=== PATIENT | male | born 1965 | race African-American/Black ===

== ENCOUNTER 2016-08-20 13:18 | Inpatient (IN) | payer OTHER ==
[2016-08-20 13:47] VITALS: BMI 27.3
--- NOTE | 2016-08-20 16:08 | HP ---
COWS - Scale Resting Pulse: 0= [place] 80 or Below Sweatin=Flushed/Facial Moisture Restless Observation: 3= Extraneous Movement Pupil Size: 2= Moderately Dilated Bone or Joint Aches: 2= Severe Diffuse Aches Runny Nose/ Eye Tearin= Runny Nose/Eyes GI Upset > 30mins: 3= Vomiting/Diarrhea Tremor Observation: 2= Slight Tremor Visible Yawning Observation: 2= >3x During Session Anxiety or Irritability: 2=Irritable/Anxious Goose Flesh Skin: 0=Smooth Skin COWS Score: 20 CIWA Score - CIWA Score Nausea/Vomitin Muscle Tremors: 3 Anxiety: 3 Agitation: 3 Paroxysmal Sweats: 2 Orientation: 0-Oriented Tacttile Disturbances: 2-Mild Itch/Numbness/Burn Auditory Disturbances: 2-Mild Harshness/Frighten Visual Disturbances: 2-Mild Sensitivity Headache: 2-Mild CIWA-Ar Total Score: 22 Admission ROS BHS - HPI Chief Complaint: i need help to stop using heroin,xanax and alcohol Allergies/Adverse Reactions: Allergies Allergy/AdvReac Type Severity Reaction Status Date / Time No Known Allergies Allergy Verified 08/20/16 15:32 History of Present Illness: this 51 years old male with heroin,xanax and alcohol dependence,withdrawal symptom,last detox 06/06 [facility] h[facility] nicotine dependence longest period of sobriety 5 years Exam Limitations: No Limitations - Ebola screening Have you traveled outside of the country in the last 21 days: No Have you had contact with anyone from an Ebola affected area: No Have you been sick,other than usual withdrawal symptoms: No Do you have a fever: No - Review of Systems Constitutional: Chills, Diaphoresis, Loss of Appetite, Malaise, Night Sweats, Changes in sleep, Weakness, Unintentional Wgt. Loss EENT: reports: Tearing, Nose Congestion Respiratory: reports: No Symptoms reported Cardiac: reports: Palpitations GI: reports: Diarrhea, Nausea, Vomiting, Abdominal cramping : reports: No Symptoms Reported Musculoskeletal: reports: Back Pain, Joint Pain, Muscle Pain, Joint Stiffness Integumentary: reports: Dryness Endocrine: reports: No Symptoms Reported Hematology: reports: No Symptoms Reported Psychiatric: reports: No Sypmtoms Reported, Judgement Intact, Mood/Affect Appropiate, Orientated x3 Patient History - Patient Medical History Hx Anemia: No (non compliance) Hx Asthma: No Hx Chronic Obstructive Pulmonary Disease (COPD): No Hx Cardiac Disorders: No Hx Hypertension: Yes Hx Seizures: No Hx Diabetes: No Hx Gastrointestinal Disorders: No Hx Liver Disease: No Hx Genitourinary Disorders: No Hx Sexually Transmitted Disorders: No Hx Renal Disease (ESRD): No Hx Thyroid Disease: No Hx Human Immunodeficiency Virus (HIV): No (last 08/19/16 negative) Hx Hepatitis C: No Hx Depression: No Hx Suicide Attempt: Yes (overdose) Hx Schizophrenia: No Other Medical History: no suicidal,no homicidal - Patient Surgical History Past Surgical History: Yes Hx Orthopedic Surgery: Yes (lt clavicle lipoma 2000) - PPD History Previous Implant?: Yes Documented Results: Positive w/o proof Implanted On Prior [facility] Admission?: No PPD to be Administered?: No - Smoking Cessation Smoking history: Current every day smoker Have you smoked in the past 12 months: Yes Aproximately how many cigarettes per day: 20 Hx Chewing Tobacco Use: No Initiated information on smoking cessation: Yes 'Breaking Loose' booklet given: 08/20/16 - Substance & Tx. History Hx Alcohol Use: Yes Hx Substance Use: Yes Substance Use Type: Alcohol, Heroin, Tranquilizers Hx Substance Use Treatment: Yes ([facility] 06/06) - Substances Abused Heroin Route: Inhalation Frequency: Daily Amount used: 10 bags Age of first use: 29 Date of Last Use: 08/18/16 Alcohol Route: Oral Frequency: Daily Amount used: jean pierre(2 pints) Age of first use: 13 Date of Last Use: 08/18/16 Alprazolam (Xanax) Frequency: 3-6 times per week Amount used: 1 stik Age of first use: 41 Date of Last Use: 08/19/16 Family Disease History - Family Disease History Family Disease History: Other: Brother (dsa) Admission Physical Exam BHS - Vital Signs Vital Signs: Vital Signs - 24 hr 08/20/16 13:45 Temperature 98.7 F Pulse Rate 67 Respiratory 20 Rate Blood Pressure 162/114 - Physical General Appearance: Yes: Moderate Distress, Tremorous, Irritable, Sweating, Anxious HEENTM: Yes: Normal ENT Inspection, LEILA, Pharynx Normal, Nasal Congestion, Rhinorrhea Respiratory: Yes: Lungs Clear, Normal Breath Sounds, No Respiratory Distress Neck: Yes: Within Normal Limits, Supple, Trachea in good position Breast: Yes: Within Normal Limits Cardiology: Yes: Regular Rhythm, Regular Rate, S1, S2, Edema Abdominal: Yes: Within Normal Limits, Normal Bowel Sounds, Non Tender, Flat, Soft Genitourinary: Yes: Within Normal Limits Back: Yes: Normal Inspection, Muscle Spasm Musculoskeletal: Yes: Within Normal Limits, Back pain, Muscle Pain Extremities: Yes: Tremors Neurological: Yes: Within Normal Limits, orthodontist assistant II-XII NML intact, Fully Oriented, Alert, Motor Strength 5/5 Integumentary: Yes: Dry Lymphatic: Yes: Within Normal Limits - Diagnostic (1) Opioid dependence with withdrawal Current Visit: Yes Status: Acute (2) Alcohol dependence with uncomplicated withdrawal Current Visit: Yes Status: Acute (3) Uncomplicated sedative, hypnotic or anxiolytic withdrawal Current Visit: Yes Status: Acute (4) Hypertension Current Visit: Yes Status: Acute (5) Weight loss Current Visit: Yes Status: Acute (6) Positive PPD, treated Current Visit: Yes Status: Acute (7) Depression Current Visit: Yes Status: Acute Cleared for Admission [facility] - Detox or Rehab [facility] Level of Care: Medically Managed Detox Regimen/Protocol: Methadone/Librium [facility] Breath Alcohol Content Breath Alcohol Content: 0 Urine Drug Screen - Results Drug Screen Negative: No Urine Drug Screen Results: LUIS-Cocaine, OPI-Opiates, BZO-Benzodiazepines
[2016-08-20] MEDS ORDERED: chlordiazePOXIDE HCL 25 MG CAPSULE PO ONE (16:18)
[2016-08-20] MEDS ORDERED: METHADONE HCL 10 MG TABLET (FOR DETOX USE ONLY) PO ONE ×2 (16:18→23:00)
[2016-08-20] MEDS ORDERED: guaiFENesin/D-METHORPHAN HB 10 ML UNIT-DOSE CUPS PO PRN (16:19)
[2016-08-20] MEDS ORDERED: LOPERAMIDE HCL 2 MG CAPSULE PO PRN (16:19)
[2016-08-20] MEDS ORDERED: MAGNESIUM CITRATE 300 ML BOTTLE PO PRN (16:19)
[2016-08-20] MEDS ORDERED: MAGNESIUM HYDROX 2400MG/30ML ORAL SUSPENSION 30 ML CUP PO PRN (16:19)
[2016-08-20] MEDS ORDERED: MENTHOL/PHENOL 1 EACH UD MM PRN (16:19)
[2016-08-20] MEDS ORDERED: diphenhydrAMINE HCL 50 MG CAPSULE PO PRN (16:19)
[2016-08-20] MEDS ORDERED: IBUPROFEN 400 MG TABLET (FP) PO PRN (16:19)
[2016-08-20] MEDS ORDERED: hydrOXYzine PAMOATE 50 MG CAPSULE (FP) PO PRN (16:19)
[2016-08-20] MEDS ORDERED: P-EPHED 60MG/TRIPROLIDI 2.5MG TABLET PO PRN (16:19)
[2016-08-20] MEDS ORDERED: NICOTINE POLACRILEX 2 MG GUM BC PRN (16:19)
[2016-08-20] MEDS: chlordiazePOXIDE HCL 25 MG CAPSULE PO SCH ×2 (17:07→23:03)
[2016-08-20] MEDS ORDERED: TRIMETHOBENZAMIDE HCL 200MG/2ML INJ IM ONE (19:47)
--- NOTE | 2016-08-20 20:10 | PN ---
S Progress Note Note: PATIENT FEEL DIZZY IN FRONT OF NURSING STATION,SLIDE DOWN TO THE FLOOR,NO HEAD INJURY,NO COMPLAINT, ALERT,ORIENTED X 3, NO HEAD INJURY NO COMPLAINT BP 167/110,P62,R20,T98.2 LUNG CLAR NO NECK PAIN, PUPIL EQUAL AND REACT TO LIGHT IMPREESION INITIATE FALL PROTOCOL 2 FALL PRECAUTION TIGAN 200 MGS IM Q 8 HRS CLOSE MONITOIRING BGM 108
[2016-08-20] MEDS ORDERED: TRIMETHOBENZAMIDE HCL 200MG/2ML INJ IM PRN (21:48)
[2016-08-20] MEDS ORDERED: METHADONE HCL 10 MG TABLET (FOR DETOX USE ONLY) ONE (21:51)
[2016-08-20] MEDS: THIAMINE HCL 100 MG TABLET (FP) PO SCH (23:01)
[2016-08-21] MEDS: ACETAMINOPHEN 325 MG TABLET (FP) PO PRN ×2 (00:20→06:05)
[2016-08-21] MEDS: chlordiazePOXIDE HCL 25 MG CAPSULE PO SCH ×5 (05:20→22:27)
[2016-08-21] MEDS ORDERED: cloNIDine HCL 0.1 MG TABLET PO ONE (05:28)
[2016-08-21 09:39] LABS: MCH 27.1 pg (25.7-33.7); MCHC 33.5 g/dl (32.0-35.9); MEAN CELL VOLUME 80.9 fl (80-96); MEAN PLT VOLUME 7.9 fl (7.5-11.1); PLATELET COUNT 358 K/MM3 (134-434); RDW 15.7 % (11.9-15.9); WHITE BLOOD COUNT 9.2 K/mm3 (4.0-10.0)
[2016-08-21 09:41] LABS: URINE APPEARANCE CLEAR; URINE BILIRUBIN NEGATIVE (NEGATIVE); URINE BLOOD NEGATIVE (NEGATIVE); URINE COLOR YELLOW; URINE GLUCOSE (UA) NEGATIVE (NEGATIVE); URINE KETONE 2+ (NEGATIVE); URINE LEUK ESTERASE NEGATIVE (NEGATIVE); URINE NITRITE NEGATIVE (NEGATIVE); URINE UROBILINOGEN NEGATIVE E.U./dl (0.2-1.0)
[2016-08-21 09:53] LABS: URINE PROTEIN 1+ (NEGATIVE)
[2016-08-21 09:59] LABS: ALBUMIN 4.1 g/dl (3.4-5.0); ALK PHOS 67 U/L (45-117); ANION GAP 9 (8-16); BILIRUBIN,TOTAL 0.7 mg/dL (0.2-1.0); CALCIUM 9.3 mg/dL (8.5-10.1); CO2 27 mmol/L (21-32); CREATININE 1.1 mg/dL (0.7-1.3); GLUCOSE,RANDOM 110 mg/dL (74-106); SGOT/AST 14 U/L (15-37); SGPT/ALT 22 U/L (12-78); TOT PROT 7.7 g/dl (6.4-8.2)
[2016-08-21] MEDS ORDERED: METHADONE HCL 10 MG TABLET (FOR DETOX USE ONLY) PO SCH (10:00)
[2016-08-21] MEDS ORDERED: PATIENT'S OWN MEDICATION (NON-FORMULARY) (Clonidine Hcl [Clonidine Hcl] 0.2 MG) PO SCH (10:00)
[2016-08-21 10:06] LABS: URINE MUCUS MANY; URINE RBC 35 /hpf (0-3); URINE WBC 2 /hpf (3-5)
[2016-08-21] MEDS: amLODIPine BESYLATE 10 MG TABLET (FP) PO SCH (10:21)
[2016-08-21] MEDS: cloNIDine HCL 0.1 MG TABLET PO SCH (10:21)
[2016-08-21] MEDS: PRENATAL VITAMINS W/ FOLIC ACID TABLET (FP) PO SCH (10:21)
[2016-08-21] MEDS ORDERED: LISINOPRIL 10 MG TABLET (FP) PO ONE (10:45)
--- NOTE | 2016-08-21 11:05 | PN ---
[facility] CIWA - CIWA Score Nausea/Vomitin Muscle Tremors: 2 Anxiety: 3 Agitation: 3 Paroxysmal Sweats: 3 Orientation: 0-Oriented Tacttile Disturbances: 2-Mild Itch/Numbness/Burn Auditory Disturbances: 0-None Visual Disturbances: 0-None Headache: 0-None Present CIWA-Ar Total Score: 16 [facility] COWS - Scale Resting Pulse: 1= [place] 81-100 Sweatin=Flushed/Facial Moisture Restless Observation: 1= Difficult to Sit Still Pupil Size: 1= Pupils >than Normal Bone or Joint Aches: 2= Severe Diffuse Aches Runny Nose/ Eye Tearin= Nasal Congestion GI Upset > 30mins: 1= Stomach Cramp Tremor Observation of Outstretched Hands: 1= Tremor [place], Not Seen Anxiety or Irritability: 1=Feels Anxious/Irritable Goose Flesh Skin: 0=Smooth Skin [facility] Progress Note (SOAP) Subjective: interrupted sleep, sweats, headache, muscle aches , Objective: 08/21/16 11:02 Vital Signs Temperature 98.6 F 08/21/16 10:03 Pulse Rate 84 08/21/16 10:03 Respiratory Rate 16 08/21/16 10:03 Blood Pressure 133/80 08/21/16 10:03 O2 Sat by Pulse Oximetry (%) Laboratory Tests 08/20/16 08/21/16 08/21/16 20:00 07:00 07:00 WBC 9.2 RBC 4.96 Hgb 13.5 Hct 40.2 MCV 80.9 MCHC 33.5 RDW 15.7 Plt Count 358 MPV 7.9 Sodium 142 Potassium 3.7 Chloride 106 Carbon Dioxide 27 Anion Gap 9 BUN 16 Creatinine 1.1 Creat Clearance w eGFR > 60 POC Glucometer 108 Random Glucose 110 H Calcium 9.3 Total Bilirubin 0.7 AST 14 L ALT 22 Alkaline Phosphatase 67 Total Protein 7.7 Albumin 4.1 Urine Color Urine Appearance Urine pH Ur Specific [place] Urine Protein Urine Glucose (UA) Urine Ketones Urine Blood Urine Nitrite Urine Bilirubin Urine Urobilinogen Ur Leukocyte Esterase Urine RBC Urine WBC Urine Mucus 08/21/16 07:00 WBC RBC Hgb Hct MCV MCHC RDW Plt Count MPV Sodium Potassium Chloride Carbon Dioxide Anion Gap BUN Creatinine Creat Clearance w eGFR POC Glucometer Random Glucose Calcium Total Bilirubin AST ALT Alkaline Phosphatase Total Protein Albumin Urine Color Yellow Urine Appearance Clear Urine pH 6.0 Ur Specific [place] 1.031 Urine Protein 1+ H Urine Glucose (UA) Negative Urine Ketones 2+ H Urine Blood Negative Urine Nitrite Negative Urine Bilirubin Negative Urine Urobilinogen Negative Ur Leukocyte Esterase Negative Urine RBC 35 Urine WBC 2 Urine Mucus Many pt lying in bed aox3 , irritable 08/21/16 11:05 08/21/16 11:06 Assessment: 08/21/16 11:03 withdrawal sx's 08/21/16 11:05 Plan: cont. detox increase fluidds motrin prn
[2016-08-21] MEDS: chlordiazePOXIDE HCL 25 MG CAPSULE PO PRN (13:19)
--- NOTE | 2016-08-21 16:05 | CONSULT ---
[facility] Psychiatric Consult - Data Date of interview: 08/21/16 Admission source: [facility] Identifying data: [facility] for this 51 y/o AA male seeking detox treatment for heroin,alcohol and xanax dependence.Patient is single,a father of three,homeless,unemployed and supported on Public Assistance. Substance Abuse History: - Smoking Cessation. Smoking history: Current every day smoker. Have you smoked in the past 12 months: Yes. Aproximately how many cigarettes per day: 20. Hx Chewing Tobacco Use: No. Initiated information on smoking cessation: Yes. 'Breaking Loose' booklet given: 08/20/16. - Substance & Tx. History. Hx Alcohol Use: Yes. Hx Substance Use: Yes. Substance Use Type : Alcohol, Heroin, Tranquilizers. Hx Substance Use Treatment: Yes ([facility] 06[facility] - Substances Abused. Heroin. Route: Inhalation. Frequency: Daily. Amount used: 10 bags. Age of first use: 29. Date of Last Use: 08/18/16. Alcohol. Route: Oral. Frequency: Daily. Amount used: jean pierre(2 pints). Age of first use: 13. Date of Last Use: 08/18/16. Alprazolam (Xanax). Frequency: 3-6 times per week. Amount used: 1 stik. Age of first use: 41. Date of Last Use: 08/19/16. Confirmed by patient. Medical History: Hypertension. Psychiatric History: Patient admits to a remote history of five psychiatric hospitalizations (years ago).Diagnosed with MDD and Anxiety Disorder.Prescribed seroquel 100 mg/hs + trazodone 100 mg/hs + remeron 15 mg/hs.Mr Burch states that he will abstain from taking these medications while on 6 ." I am aware of being on so many other things now;My plan is to complete detox and restart my regular medications after I get home." Patient sees a private psychiatrist at a mental health clinic in [facility] (name of site not recalled by patient).No reported history of suicide attempts. Physical/Sexual Abuse/Trauma History: Patient denies. Additional Comment: Urine Drug Screen Results: LUIS-Cocaine, OPI-Opiates, BZO- Benzodiazepines.Noted. Mental Status Exam - Mental Status Exam Alert and Oriented to: Time, Place, Person Cognitive Function: Good Patient Appearance: Well Groomed Mood: Hopeful, Euthymic Affect: Appropriate, Normal Range Patient Behavior: Fatigued, Appropriate, Cooperative Speech Pattern: Clear, Appropriate Voice Loudness: Normal Thought Process: Intact, Goal Oriented Thought Disorder: Not Present Hallucinations: Denies Suicidal Ideation: Denies Homicidal Ideation: Denies Insight/Judgement: Poor Sleep: Fair Appetite: Good Muscle strength/Tone: Normal Gait/Station: Normal Psychiatric Findings - Problem List ([place] 1, 2,3) (1) Alcohol dependence with uncomplicated withdrawal Current Visit: Yes Status: Acute (2) Opioid dependence with withdrawal Current Visit: Yes Status: Acute (3) Uncomplicated sedative, hypnotic or anxiolytic withdrawal Current Visit: Yes Status: Acute (4) Nicotine dependence Current Visit: Yes Status: Acute (5) MDD (major depressive disorder) Current Visit: Yes Status: Chronic (6) Substance induced mood disorder Current Visit: Yes Status: Acute (7) Hypertension Current Visit: Yes Status: Chronic (8) Positive PPD, treated Current Visit: Yes Status: Chronic - Initial Treatment Plan Initial Treatment Plan: Psychoeducation.Patient is advised against his decision to defer pharmacotherapy.He refuses to reconsider.Detoxification in progress.Observation.
[2016-08-21] MEDS: THIAMINE HCL 100 MG TABLET (FP) PO SCH (22:27)
[2016-08-21] MEDS: ZOLPIDEM TARTRATE 10 MG TABLET (PARK CARE ONLY) PO PRN (22:30)
[2016-08-22] MEDS: chlordiazePOXIDE HCL 25 MG CAPSULE PO SCH ×2 (05:40→10:49)
[2016-08-22] MEDS ORDERED: cloNIDine HCL 0.1 MG TABLET PO SCH (10:10)
--- NOTE | 2016-08-22 10:44 | PN ---
[facility] CIWA - CIWA Score Nausea/Vomitin-No Nausea/No Vomiting Muscle Tremors: 3 Anxiety: 3 Agitation: 3 Paroxysmal Sweats: 3 Orientation: 0-Oriented Tacttile Disturbances: 0-None Auditory Disturbances: 0-None Visual Disturbances: 0-None Headache: 0-None Present CIWA-Ar Total Score: 12 [facility] COWS - Scale Resting Pulse: 0= [place] 80 or Below Sweatin=Flushed/Facial Moisture Restless Observation: 1= Difficult to Sit Still Pupil Size: 0= Normal to Room Light Bone or Joint Aches: 2= Severe Diffuse Aches Runny Nose/ Eye Tearin= Nasal Congestion GI Upset > 30mins: 1= Stomach Cramp Tremor Observation of Outstretched Hands: 2= Slight Tremor Visible Yawning Observation: 1= 1-2x During Session Anxiety or Irritability: 1=Feels Anxious/Irritable Goose Flesh Skin: 0=Smooth Skin COWS Score: 11 S Progress Note (SOAP) Subjective: sweats mild chest pain irritable body aches nausea Objective: 08/22/16 10:44 Vital Signs Temperature 99.3 F 08/22/16 10:41 Pulse Rate 61 08/22/16 10:41 Respiratory Rate 18 08/22/16 10:41 Blood Pressure 150/102 08/22/16 10:41 O2 Sat by Pulse Oximetry (%) Laboratory Tests 08/20/16 08/21/16 08/21/16 20:00 07:00 07:00 WBC 9.2 RBC 4.96 Hgb 13.5 Hct 40.2 MCV 80.9 MCHC 33.5 RDW 15.7 Plt Count 358 MPV 7.9 Sodium 142 Potassium 3.7 Chloride 106 Carbon Dioxide 27 Anion Gap 9 BUN 16 Creatinine 1.1 Creat Clearance w eGFR > 60 POC Glucometer 108 Random Glucose 110 H Calcium 9.3 Total Bilirubin 0.7 AST 14 L ALT 22 Alkaline Phosphatase 67 Total Protein 7.7 Albumin 4.1 Urine Color Urine Appearance Urine pH Ur Specific [place] Urine Protein Urine Glucose (UA) Urine Ketones Urine Blood Urine Nitrite Urine Bilirubin Urine Urobilinogen Ur Leukocyte Esterase Urine RBC Urine WBC Urine Mucus RPR Titer 08/21/16 08/21/16 08/22/16 07:00 07:00 06:34 WBC RBC Hgb Hct MCV MCHC RDW Plt Count MPV Sodium Potassium Chloride Carbon Dioxide Anion Gap BUN Creatinine Creat Clearance w eGFR POC Glucometer 101 Random Glucose Calcium Total Bilirubin AST ALT Alkaline Phosphatase Total Protein Albumin Urine Color Yellow Urine Appearance Clear Urine pH 6.0 Ur Specific [place] 1.031 Urine Protein 1+ H Urine Glucose (UA) Negative Urine Ketones 2+ H Urine Blood Negative Urine Nitrite Negative Urine Bilirubin Negative Urine Urobilinogen Negative Ur Leukocyte Esterase Negative Urine RBC 35 Urine WBC 2 Urine Mucus Many RPR Titer Nonreactive awake/alert ambulating no acute distress ekg ordered; no difference from last ekg Assessment: 08/22/16 10:45 withdrawal sx Plan: continue detox increase fluids aspirin 81mg daily [place] prn tigan prn
[2016-08-22] MEDS: LISINOPRIL 10 MG TABLET (FP) PO SCH (10:48)
[2016-08-22] MEDS: amLODIPine BESYLATE 10 MG TABLET (FP) PO SCH (10:48)
[2016-08-22] MEDS: PRENATAL VITAMINS W/ FOLIC ACID TABLET (FP) PO SCH (10:48)
[2016-08-22] MEDS: METHADONE HCL 5 MG TABLET (FOR DETOX USE ONLY) PO SCH (10:49)
[2016-08-22] MEDS: ASPIRIN 81 MG CHEWABLE TABLETS PO SCH (10:50)
[2016-08-22] MEDS: cloNIDine HCL 0.1 MG TABLET PO SCH ×2 (10:51→10:57)
[2016-08-22] MEDS: chlordiazePOXIDE 5 MG CAPSULE PO SCH ×2 (17:36→22:35)
[2016-08-22] MEDS: MAG HYDROX/AL HYDROX/SIMETH 30 ML UNIT-DOSE CUP PO PRN (20:24)
[2016-08-22] MEDS: THIAMINE HCL 100 MG TABLET (FP) PO SCH (22:35)
[2016-08-22] MEDS: ZOLPIDEM TARTRATE 10 MG TABLET (PARK CARE ONLY) PO PRN (22:35)
--- NOTE | 2016-08-22 22:51 | EKG ---
Test Reason : Blood Pressure : / mmHG Vent. Rate : 061 BPM Atrial Rate : 061 BPM P-R Int : 166 ms QRS Dur : 084 ms QT Int : 406 ms P-R-T Axes : 081 077 073 degrees QTc Int : 408 ms NORMAL SINUS RHYTHM NONSPECIFIC T WAVE ABNORMALITY ABNORMAL ECG NO PREVIOUS ECGS AVAILABLE Confirmed by PETE PEREZ, NEEL ([id number]) on 08/22/2016 10:51:09 PM Referred By: Confirmed By:NEEL FREEMAN MD
[2016-08-23] MEDS: chlordiazePOXIDE 5 MG CAPSULE PO SCH ×2 (06:00→10:18)
--- NOTE | 2016-08-23 10:11 | EKG ---
Test Reason : Blood Pressure : / mmHG Vent. Rate : 060 BPM Atrial Rate : 060 BPM P-R Int : 162 ms QRS Dur : 082 ms QT Int : 436 ms P-R-T Axes : 067 060 060 degrees QTc Int : 436 ms NORMAL SINUS RHYTHM POSSIBLE LEFT ATRIAL ENLARGEMENT NONSPECIFIC T WAVE ABNORMALITY ABNORMAL ECG WHEN COMPARED WITH ECG OF 20-AUG-2016 16:14, NO SIGNIFICANT CHANGE WAS FOUND Confirmed by GONZALEZ PEREZ, FAN ([id number]) on 08/23/2016 10:10:34 AM Referred By: Rhett Guido Confirmed By:FAN ROTH MD
[2016-08-23] MEDS: ASPIRIN 81 MG CHEWABLE TABLETS PO SCH (10:17)
[2016-08-23] MEDS: PRENATAL VITAMINS W/ FOLIC ACID TABLET (FP) PO SCH (10:17)
[2016-08-23] MEDS: METHADONE HCL 5 MG TABLET (FOR DETOX USE ONLY) PO SCH (10:18)
[2016-08-23] MEDS: amLODIPine BESYLATE 10 MG TABLET (FP) PO SCH (10:18)
[2016-08-23] MEDS: LISINOPRIL 10 MG TABLET (FP) PO SCH (10:20)
[2016-08-23] MEDS: cloNIDine HCL 0.1 MG TABLET PO SCH (10:20)
[2016-08-23] MEDS: ACETAMINOPHEN 325 MG TABLET (FP) PO PRN (12:29)
[2016-08-23] MEDS: chlordiazePOXIDE HCL 25 MG CAPSULE PO PRN (12:31)
--- NOTE | 2016-08-23 13:37 | PN ---
[facility] Progress Note (SOAP) Subjective: interrupted sleep, sweats mild upset stomach , lipoma on rt buttock Objective: 08/23/16 13:34 Vital Signs Temperature 98.1 F 08/23/16 13:01 Pulse Rate 61 08/23/16 13:01 Respiratory Rate 18 08/23/16 13:01 Blood Pressure 98/56 08/23/16 13:01 O2 Sat by Pulse Oximetry (%) Laboratory Tests 08/20/16 08/21/16 08/21/16 20:00 07:00 07:00 WBC 9.2 RBC 4.96 Hgb 13.5 Hct 40.2 MCV 80.9 MCHC 33.5 RDW 15.7 Plt Count 358 MPV 7.9 Sodium 142 Potassium 3.7 Chloride 106 Carbon Dioxide 27 Anion Gap 9 BUN 16 Creatinine 1.1 Creat Clearance w eGFR > 60 POC Glucometer 108 Random Glucose 110 H Calcium 9.3 Total Bilirubin 0.7 AST 14 L ALT 22 Alkaline Phosphatase 67 Total Protein 7.7 Albumin 4.1 Urine Color Urine Appearance Urine pH Ur Specific [place] Urine Protein Urine Glucose (UA) Urine Ketones Urine Blood Urine Nitrite Urine Bilirubin Urine Urobilinogen Ur Leukocyte Esterase Urine RBC Urine WBC Urine Mucus RPR Titer 08/21/16 08/21/16 08/22/16 07:00 07:00 06:34 WBC RBC Hgb Hct MCV MCHC RDW Plt Count MPV Sodium Potassium Chloride Carbon Dioxide Anion Gap BUN Creatinine Creat Clearance w eGFR POC Glucometer 101 Random Glucose Calcium Total Bilirubin AST ALT Alkaline Phosphatase Total Protein Albumin Urine Color Yellow Urine Appearance Clear Urine pH 6.0 Ur Specific [place] 1.031 Urine Protein 1+ H Urine Glucose (UA) Negative Urine Ketones 2+ H Urine Blood Negative Urine Nitrite Negative Urine Bilirubin Negative Urine Urobilinogen Negative Ur Leukocyte Esterase Negative Urine RBC 35 Urine WBC 2 Urine Mucus Many RPR Titer Nonreactive pt aox3 in nad ambulating rt buttock mass pedunculated Assessment: 08/23/16 13:36 withdrawal sx;s Plan: cont. detox increase fluids surgical f/up at d/c [place] prn
[2016-08-23] MEDS: chlordiazePOXIDE HCL 10 MG CAPSULE PO SCH ×2 (17:41→22:26)
[2016-08-23] MEDS: THIAMINE HCL 100 MG TABLET (FP) PO SCH (22:26)
[2016-08-23] MEDS: ZOLPIDEM TARTRATE 10 MG TABLET (PARK CARE ONLY) PO PRN (22:27)
[2016-08-23] MEDS: METHYL SALICYLATE/MENTHOL OINT 30 GM TUBE TP SCH (22:32)
[2016-08-24] MEDS: chlordiazePOXIDE HCL 10 MG CAPSULE PO SCH ×2 (05:10→10:35)
[2016-08-24] MEDS: MAG HYDROX/AL HYDROX/SIMETH 30 ML UNIT-DOSE CUP PO PRN (09:25)
[2016-08-24] MEDS ORDERED: METHADONE HCL 10 MG TABLET (FOR DETOX USE ONLY) PO SCH (10:00)
--- NOTE | 2016-08-24 10:10 | PN ---
S Progress Note (SOAP) Subjective: ALERT,IRRITABLE,ANXIOUS,INTERRUPTED SLEEP Objective: 08/24/16 10:09 Vital Signs Temperature 97.7 F 08/24/16 06:16 Pulse Rate 55 L 08/24/16 06:16 Respiratory Rate 18 08/24/16 06:16 Blood Pressure 122/79 08/24/16 06:16 O2 Sat by Pulse Oximetry (%) Assessment: 08/24/16 10:09 WITHDRAWAL SYMPTOM Plan: CONTINUE DETOX,DISCHARGE IN AM
[2016-08-24] MEDS: PRENATAL VITAMINS W/ FOLIC ACID TABLET (FP) PO SCH (10:35)
[2016-08-24] MEDS: amLODIPine BESYLATE 10 MG TABLET (FP) PO SCH (10:35)
[2016-08-24] MEDS: cloNIDine HCL 0.1 MG TABLET PO SCH (10:35)
[2016-08-24] MEDS: METHYL SALICYLATE/MENTHOL OINT 30 GM TUBE TP SCH ×2 (10:35→22:26)
[2016-08-24] MEDS: LISINOPRIL 10 MG TABLET (FP) PO SCH (10:35)
[2016-08-24] MEDS: ASPIRIN 81 MG CHEWABLE TABLETS PO SCH (10:35)
[2016-08-24] MEDS: THIAMINE HCL 100 MG TABLET (FP) PO SCH (22:25)
[2016-08-25] MEDS ORDERED: METHADONE HCL 5 MG TABLET (FOR DETOX USE ONLY) PO SCH (06:00)
--- NOTE | 2016-08-25 08:11 | PN ---
S Progress Note (SOAP) Subjective: ALERT,NO COMPLAINT Objective: 08/25/16 08:10 Vital Signs Temperature 97.7 F 08/25/16 06:32 Pulse Rate 50 L 08/25/16 06:32 Respiratory Rate 18 08/25/16 06:32 Blood Pressure 122/74 08/25/16 06:32 O2 Sat by Pulse Oximetry (%) 08/25/16 08:10 Assessment: 08/25/16 08:10 DETOX COMPLETED,NO WITHDRAWAL SYMPTOM 08/25/16 08:10 Plan: DISCHARGE TODAY,FOLLOW UP WITH AFTER CARE PROGRAM ARRANGEMENT
--- NOTE | 2016-08-25 08:16 | DS ---
[facility] Detox Discharge Summary Admission Date: 08/20/16 Discharge Date: 08/25/16 - History Present History: Alcohol Dependence, Opioid Dependence, Sedative Dependence Additional Comments: FOLLOW UP WITH AFTER CARE PROGRAM ARRANGEMENT Pertinent Past History: HYPERTENSION WEIGHT LOSS POSITIVE PPD TREATED DEPRESSION - Physical Exam Results Vital Signs: Vital Signs Temperature 97.7 F 08/25/16 06:32 Pulse Rate 50 L 08/25/16 06:32 Respiratory Rate 18 08/25/16 06:32 Blood Pressure 122/74 08/25/16 06:32 O2 Sat by Pulse Oximetry (%) Pertinent Admission Physical Exam Findings: WITHDRAWAL SYMPTOM - Treatment Hospital Course: Detox Protocol Followed, Detoxed Safely, Responded well, Discharged Condition Good, Rehab Referral Accepted Patient has Accepted a Rehab Referral to: [facility] - Medication Discharge Medications: Ambulatory Orders Amlodipine Besylate 10 mg PO DAILY 08/20/16 Clonidine HCl 0.2 mg PO DAILY 08/20/16 - Diagnosis (1) Opioid dependence with withdrawal Current Visit: Yes Status: Acute (2) Alcohol dependence with uncomplicated withdrawal Current Visit: Yes Status: Acute (3) Uncomplicated sedative, hypnotic or anxiolytic withdrawal Current Visit: Yes Status: Acute (4) Hypertension Current Visit: Yes Status: Chronic (5) Weight loss Current Visit: Yes Status: Acute (6) Positive PPD, treated Current Visit: Yes Status: Chronic (7) Depression Current Visit: Yes Status: Acute (8) Nicotine dependence Current Visit: Yes Status: Acute (9) MDD (major depressive disorder) Current Visit: Yes Status: Chronic - AMA Did Patient Leave Against Medical Advice: No
[2016-08-25 09:45] VITALS: BP 138/73; PULSE 64; TEMP 97.9
== END 2016-08-25 09:35 | disposition home or self-care (01) | DRG 773 ==
LOC: YASAS 13:18 → Y6N 15:56
PROVIDERS: ADMIT Internal Medicine; ATTEND Internal Medicine Addiction Medicine
PROC: HZ2ZZZZ Detoxification Services for Substance Abuse Treatment (ICD-10-PCS; principal; 2016-08-25)
DX: F11.23 Opioid dependence with withdrawal (principal); F13.230 Sedative, hypnotic or anxiolytic dependence with withdrawal, uncomplicated; F10.230 Alcohol dependence with withdrawal, uncomplicated; F17.210 Nicotine dependence, cigarettes, uncomplicated; F33.9 Major depressive disorder, recurrent, unspecified; F32.9 Major depressive disorder, single episode, unspecified; F19.24 Other psychoactive substance dependence with psychoactive substance-induced mood disorder; R76.11 Nonspecific reaction to tuberculin skin test without active tuberculosis; Z59.0 Homelessness
CPT/HCPCS: 36415; 71010-TC; 80053; 81003; 81015; 85027; 86593; 93005; 93010

== ENCOUNTER 2016-12-29 17:48 | Inpatient (IN) | payer OTHER ==
[2016-12-29 20:47] VITALS: BMI 28.3
--- NOTE | 2016-12-29 21:10 | HP ---
COWS - Scale Resting Pulse: 0= [place] 80 or Below Sweatin=Flushed/Facial Moisture Restless Observation: 3= Extraneous Movement Pupil Size: 2= Moderately Dilated Bone or Joint Aches: 2= Severe Diffuse Aches Runny Nose/ Eye Tearin= Runny Nose/Eyes GI Upset > 30mins: 3= Vomiting/Diarrhea Tremor Observation: 2= Slight Tremor Visible Yawning Observation: 2= >3x During Session Anxiety or Irritability: 2=Irritable/Anxious Goose Flesh Skin: 0=Smooth Skin COWS Score: 20 CIWA Score - CIWA Score Nausea/Vomitin Muscle Tremors: 3 Anxiety: 3 Agitation: 3 Paroxysmal Sweats: 2 Orientation: 0-Oriented Tacttile Disturbances: 2-Mild Itch/Numbness/Burn Auditory Disturbances: 2-Mild Harshness/Frighten Visual Disturbances: 2-Mild Sensitivity Headache: 2-Mild CIWA-Ar Total Score: 22 Admission ROS BHS - HPI Chief Complaint: i need help to stop using heroin,alcohol,cocaine Allergies/Adverse Reactions: Allergies Allergy/AdvReac Type Severity Reaction Status Date / Time No Known Allergies Allergy Verified 12/29/16 21:20 History of Present Illness: this 51 years old male with heroin,alcohol and cocaine dependence,seeking detox, last [facility] 08/20/16 to 10/25/16 multiple admissions in detox, history of htn anxiety,depression,insomnia longest period of sobriety nicotine dependence Exam Limitations: No Limitations - Ebola screening Have you traveled outside of the country in the last 21 days: No (N) Have you had contact with anyone from an Ebola affected area: No Have you been sick,other than usual withdrawal symptoms: No Do you have a fever: No - Review of Systems Constitutional: Chills, Diaphoresis, Loss of Appetite, Malaise, Night Sweats, Changes in sleep, Weakness, Unintentional Wgt. Loss EENT: reports: Tearing, Nose Congestion Respiratory: reports: No Symptoms reported Cardiac: reports: No Symptoms Reported GI: reports: Diarrhea, Nausea, Vomiting, Abdominal cramping : reports: No Symptoms Reported Musculoskeletal: reports: Back Pain, Joint Pain, Muscle Pain, Joint Stiffness Integumentary: reports: Dryness Endocrine: reports: No Symptoms Reported Hematology: reports: No Symptoms Reported Psychiatric: reports: No Sypmtoms Reported, Judgement Intact, Mood/Affect Appropiate, Orientated x3, Anxious, Depressed (inomnia) Patient History - Patient Medical History Hx Anemia: No (non compliance) Hx Asthma: No Hx Chronic Obstructive Pulmonary Disease (COPD): No Hx Cancer: No Hx Cardiac Disorders: No Hx Hypertension: Yes (on meds) Hx Hypercholesterolemia: No Hx Pacemaker: No HX Cerebrovascular Accident: No Hx Seizures: No Hx Dementia: No Hx Diabetes: No Hx Gastrointestinal Disorders: No Hx Liver Disease: No Hx Genitourinary Disorders: No Hx Sexually Transmitted Disorders: No Hx Renal Disease (ESRD): No Hx Thyroid Disease: No Hx Human Immunodeficiency Virus (HIV): No (last 08/19/16 negative) Hx Hepatitis C: No Hx Depression: Yes (anxiety) Hx Suicide Attempt: Yes (overdose at age 38) Hx Bipolar Disorder: No Hx Schizophrenia: No Other Medical History: no suicidal,no homicidal - Patient Surgical History Past Surgical History: Yes Hx Appendectomy: Yes (lap appenctomy 1992) Hx Orthopedic Surgery: Yes (lt clavicle lipoma 2000) - PPD History Previous Implant?: Yes Documented Results: Positive w/proof PPD to be Administered?: No - Smoking Cessation Smoking history: Current every day smoker Have you smoked in the past 12 months: Yes Aproximately how many cigarettes per day: 20 Hx Chewing Tobacco Use: No Initiated information on smoking cessation: Yes 'Breaking Loose' booklet given: 12/29/16 - Substance & Tx. History Hx Alcohol Use: Yes Hx Substance Use: Yes Substance Use Type: Alcohol, Heroin Hx Substance Use Treatment: Yes ([facility] 08/20/16 to 08/25/16) - Substances Abused Heroin Route: Inhalation Frequency: Daily Amount used: 15 bags Age of first use: 28 Date of Last Use: 12/28/16 Alcohol Route: Oral Frequency: Daily Amount used: 2pints of jean pierre/2 of 6 packs of 12 ozs of beer Age of first use: 15 Date of Last Use: 12/28/16 Cocaine Route: Smoking Frequency: 1-3 times last 30 days Amount used: 40$ Age of first use: 19 Date of Last Use: 12/28/16 Family Disease History - Family Disease History Family Disease History: Other: Brother (dsa) Admission Physical Exam BHS - Vital Signs Vital Signs: Vital Signs - 24 hr 08/11/17 20:45 Temperature 97.2 F L Pulse Rate 55 L Respiratory 20 Rate Blood Pressure 151/107 - Physical General Appearance: Yes: Moderate Distress, Tremorous, Irritable, Sweating, Anxious HEENTM: Yes: Hearing grossly Normal, Normal ENT Inspection, LEILA, Pharynx Normal Respiratory: Yes: Lungs Clear, Normal Breath Sounds, No Respiratory Distress Neck: Yes: Within Normal Limits, Supple, Trachea in good position Breast: Yes: Within Normal Limits Cardiology: Yes: Within Normal Limits, Regular Rhythm, Regular Rate, S1, S2 Abdominal: Yes: Within Normal Limits, Normal Bowel Sounds, Non Tender, Flat, Soft, Surgical Scar Genitourinary: Yes: Within Normal Limits Back: Yes: Normal Inspection, Muscle Spasm Musculoskeletal: Yes: full range of Motion, Back pain, Muscle Pain Extremities: Yes: Normal Range of Motion, Tremors Neurological: Yes: ordering machine operator II-XII NML intact, Fully Oriented, Alert, Motor Strength 5/5 Integumentary: Yes: Dry Lymphatic: Yes: Within Normal Limits - Diagnostic (1) Alcohol dependence with uncomplicated withdrawal Current Visit: No Status: Acute (2) Nicotine dependence Current Visit: No Status: Acute (3) Opioid dependence with withdrawal Current Visit: No Status: Acute (4) Weight loss Current Visit: No Status: Acute (5) Hypertension Current Visit: No Status: Chronic (6) MDD (major depressive disorder) Current Visit: No Status: Chronic (7) Positive PPD, treated Current Visit: No Status: Chronic (8) Anxiety Current Visit: Yes Status: Acute (9) Insomnia Current Visit: Yes Status: Acute Cleared for Admission S - Detox or Rehab [facility] Level of Care: Medically Managed Detox Regimen/Protocol: Methadone/Librium S Breath Alcohol Content Breath Alcohol Content: 0 Urine Drug Screen - Results Drug Screen Negative: No Urine Drug Screen Results: LUIS-Cocaine, OPI-Opiates, MDMA-Ecstasy, MTD-Methadone
[2016-12-29] MEDS ORDERED: MAGNESIUM CITRATE 300 ML BOTTLE PO PRN (21:27)
[2016-12-29] MEDS ORDERED: P-EPHED 60MG/TRIPROLIDI 2.5MG TABLET PO PRN (21:27)
[2016-12-29] MEDS ORDERED: guaiFENesin/D-METHORPHAN HB 10 ML UNIT-DOSE CUPS PO PRN (21:27)
[2016-12-29] MEDS ORDERED: hydrOXYzine PAMOATE 25 MG CAPSULE (FP) PO PRN (21:27)
[2016-12-29] MEDS ORDERED: chlordiazePOXIDE HCL 25 MG CAPSULE PO ONE (21:27)
[2016-12-29] MEDS ORDERED: LOPERAMIDE HCL 2 MG CAPSULE PO PRN (21:27)
[2016-12-29] MEDS ORDERED: MENTHOL/PHENOL 1 EACH UD MM PRN (21:27)
[2016-12-29] MEDS ORDERED: MAGNESIUM HYDROX 2400MG/30ML ORAL SUSPENSION 30 ML CUP PO PRN (21:27)
[2016-12-29] MEDS ORDERED: diphenhydrAMINE HCL 50 MG CAPSULE PO PRN (21:27)
[2016-12-29] MEDS ORDERED: METHADONE HCL 10 MG TABLET (FOR DETOX USE ONLY) PO ONE ×2 (21:27→23:00)
[2016-12-29] MEDS ORDERED: chlordiazePOXIDE HCL 25 MG CAPSULE PO PRN (21:27)
[2016-12-29] MEDS ORDERED: NICOTINE POLACRILEX 2 MG GUM BC PRN (21:27)
[2016-12-29] MEDS: THIAMINE HCL 100 MG TABLET (FP) PO SCH (22:42)
[2016-12-29] MEDS: chlordiazePOXIDE HCL 25 MG CAPSULE PO SCH (22:43)
[2016-12-29] MEDS: cloNIDine HCL 0.1 MG TABLET PO SCH (22:44)
[2016-12-29] MEDS: amLODIPine BESYLATE 10 MG TABLET (FP) PO SCH (22:44)
[2016-12-29] MEDS: NICOTINE 21 MG/24 HOURS TOPICAL PATCH TD SCH (22:44)
[2016-12-29] MEDS: HYDROCHLOROTHIAZIDE 25 MG TABLET (FP) PO SCH (22:44)
[2016-12-29 23:57] LABS: URINE APPEARANCE SLCLOUDY; URINE BILIRUBIN NEGATIVE (NEGATIVE); URINE BLOOD NEGATIVE (NEGATIVE); URINE COLOR YELLOW; URINE GLUCOSE (UA) NEGATIVE (NEGATIVE); URINE KETONE NEGATIVE (NEGATIVE); URINE LEUK ESTERASE NEGATIVE (NEGATIVE); URINE NITRITE NEGATIVE (NEGATIVE); URINE PROTEIN NEGATIVE (NEGATIVE); URINE UROBILINOGEN NEGATIVE mg/dL (0.2-1.0)
[2016-12-30] MEDS: chlordiazePOXIDE HCL 25 MG CAPSULE PO SCH ×4 (05:48→22:57)
[2016-12-30] MEDS ORDERED: METHADONE HCL 10 MG TABLET (FOR DETOX USE ONLY) PO SCH (10:00)
[2016-12-30 10:30] LABS: MCHC 32.8 g/dl (32.0-35.9); MEAN CELL VOLUME 82.3 fl (80-96); MEAN PLT VOLUME 7.8 fl (7.5-11.1); PLATELET COUNT 355 K/MM3 (134-434); RDW 15.5 % (11.9-15.9); WHITE BLOOD COUNT 7.9 K/mm3 (4.0-10.0)
[2016-12-30] MEDS: PRENATAL VITAMINS W/ FOLIC ACID TABLET (FP) PO SCH (10:37)
[2016-12-30] MEDS: cloNIDine HCL 0.1 MG TABLET PO SCH ×2 (10:37→22:56)
[2016-12-30] MEDS: NICOTINE 21 MG/24 HOURS TOPICAL PATCH TD SCH (10:37)
[2016-12-30] MEDS: amLODIPine BESYLATE 10 MG TABLET (FP) PO SCH (10:37)
[2016-12-30] MEDS: HYDROCHLOROTHIAZIDE 25 MG TABLET (FP) PO SCH (10:38)
[2016-12-30 10:51] LABS: ALBUMIN 3.5 g/dl (3.4-5.0); ANION GAP 5 (8-16); BILIRUBIN,TOTAL 0.4 mg/dL (0.2-1.0); CALCIUM 9.1 mg/dL (8.5-10.1); CO2 31 mmol/L (21-32); CREATININE 1.1 mg/dL (0.7-1.3); GLUCOSE,RANDOM 113 mg/dL (74-106); SGOT/AST 11 U/L (15-37); SGPT/ALT 20 U/L (12-78); TOT PROT 6.4 g/dl (6.4-8.2)
[2016-12-30 10:52] LABS: ALK PHOS 56 U/L (45-117)
--- NOTE | 2016-12-30 12:18 | CONSULT ---
[facility] Psychiatric Consult - Data Date of interview: 12/30/16 Admission source: [facility] Identifying data: Another admission to [facility] for this 51 y/o AA male seeking detox treatment on for heroin,alcohol and xanax dependence.Patient is single,a father of three,homeless,unemployed and supported on Public Assistance. Substance Abuse History: Discussed with patient.Mr Burch confirms this report.He indicates that he is using xanax as well in the community. Smoking Cessation. Smoking history: Current every day smoker. Have you smoked in the past 12 months: Yes. Aproximately how many cigarettes per day: 20. Hx Chewing Tobacco Use: No. Initiated information on smoking cessation: Yes. 'Breaking Loose' booklet given: 12/29/16. - Substance & Tx. History. Hx Alcohol Use: Yes. Hx Substance Use: Yes. Substance Use Type: Alcohol, Heroin. Hx Substance Use Treatment: Yes ([facility] 08/20/16 to 08/25/16). - Substances Abused. Heroin. Route: Inhalation. Frequency: Daily. Amount used: 15 bags. Age of first use: 28. Date of Last Use: 12/28/16. Alcohol. Route: Oral. Frequency: Daily. Amount used: 2pints of jean pierre/2 of 6 packs of 12 ozs of beer. Age of first use: 15. Date of Last Use: 12/28/16. Cocaine. Route: Smoking. Frequency: 1-3 times last 30 days. Amount used: 40$. Age of first use: 19. Date of Last Use: 12/28/16 Medical History: Hypertension and a history of appendectomy + orthosurgery ( excision of lipoma in left clavicle in 2000). Psychiatric History: History of multiple psychiatric hospitalizations.Diagnosed with MDD and Anxiety Disorder.Used to be on seroquel 100 mg/hs + trazodone 100 mg/hs + remeron 15 mg/hs." Currently lost to follow up.Mr Burch indicates that he has not visited his psychiatrist,a private practitioner in [facility].Patient requests to get back on these medications.In this interview,he endorses a history of two suicide attempts (deliberate overdoses with drugs in 1992 + 2000) . Physical/Sexual Abuse/Trauma History: Patient denies history of sexual abuse.He admits to a history of more than 20 years of incarceration. Mental Status Exam - Mental Status Exam Alert and Oriented to: Time, Place, Person Cognitive Function: Good Patient Appearance: Unkempt, Disheveled Mood: Nervous, Withdrawn, Anxious Affect: Mood Congruent Patient Behavior: Fatigued, Cooperative Speech Pattern: Clear Voice Loudness: Normal Thought Process: Goal Oriented Thought Disorder: Not Present Hallucinations: Denies Suicidal Ideation: Denies Homicidal Ideation: Denies Insight/Judgement: Poor Sleep: Poorly, Difficulty falling asleep Appetite: Good Muscle strength/Tone: Normal Gait/Station: Normal Psychiatric Findings - Problem List ([facility] 1, 2,3) (1) Opioid dependence with withdrawal Current Visit: Yes Status: Acute (2) Uncomplicated sedative, hypnotic or anxiolytic withdrawal Current Visit: Yes Status: Acute (3) Nicotine dependence Current Visit: Yes Status: Acute (4) Substance induced mood disorder Current Visit: Yes Status: Acute (5) Positive PPD, treated Current Visit: No Status: Chronic (6) Insomnia Current Visit: Yes Status: Acute - Initial Treatment Plan Initial Treatment Plan: Psychoeducation.Detoxification.Medications : seroquel 100 mg po hs.Side effects/benefits are discussed with the patient.Patient is in agreement with this careplan.Pharmacy claims revisited : not helpful.No evidence of scripts for seroquel or remeron.Patient is a questionable historian.Monitor progress.
--- NOTE | 2016-12-30 12:36 | PN ---
[facility] CIWA - CIWA Score Nausea/Vomitin Muscle Tremors: 2 Anxiety: 3 Agitation: 1-Slight > Activity Paroxysmal Sweats: 3 Orientation: 0-Oriented Tacttile Disturbances: 3-Moderate Itch/Numb/Burn Auditory Disturbances: 0-None Visual Disturbances: 2-Mild Sensitivity Headache: 0-None Present CIWA-Ar Total Score: 16 BHS COWS - Scale Resting Pulse: 0= [place] 80 or Below Sweatin= Chills/Flushing Restless Observation: 0= Sits Still Pupil Size: 0= Normal to Room Light Bone or Joint Aches: 2= Severe Diffuse Aches Runny Nose/ Eye Tearin= Runny Nose/Eyes GI Upset > 30mins: 1= Stomach Cramp Tremor Observation of Outstretched Hands: 2= Slight Tremor Visible Yawning Observation: 1= 1-2x During Session Anxiety or Irritability: 2=Irritable/Anxious Goose Flesh Skin: 3=Piloerection COWS Score: 14 S Progress Note (SOAP) Subjective: Sweating, Interrupted sleep, Body Aches, Stomach Cramping. Objective: PT. A & O X 3. NO ACUTE DISTRESS. PT. DENIES CHEST PAIN. 12/30/16 12:33 Vital Signs Temperature 97.0 F L 12/30/16 09:05 Pulse Rate 55 L 12/30/16 09:05 Respiratory Rate 20 12/30/16 09:05 Blood Pressure 123/77 12/30/16 09:05 O2 Sat by Pulse Oximetry (%) Laboratory Tests 12/29/16 12/30/16 12/30/16 23:35 07:45 07:45 WBC 7.9 RBC 5.00 Hgb 13.5 Hct 41.2 MCV 82.3 MCH 27.0 MCHC 32.8 RDW 15.5 Plt Count 355 MPV 7.8 Sodium 140 Potassium 4.0 Chloride 104 Carbon Dioxide 31 Anion Gap 5 L BUN 15 Creatinine 1.1 Creat Clearance w eGFR > 60 Random Glucose 113 H Calcium 9.1 Total Bilirubin 0.4 D AST 11 L D ALT 20 Alkaline Phosphatase 56 Total Protein 6.4 Albumin 3.5 Urine Color Yellow Urine Appearance Slcloudy Urine pH 5.0 Ur Specific [place] >= 1.030 H Urine Protein Negative Urine Glucose (UA) Negative Urine Ketones Negative Urine Blood Negative Urine Nitrite Negative Urine Bilirubin Negative Urine Urobilinogen Negative Ur Leukocyte Esterase Negative RPR Titer 12/30/16 07:45 WBC RBC Hgb Hct MCV MCH MCHC RDW Plt Count MPV Sodium Potassium Chloride Carbon Dioxide Anion Gap BUN Creatinine Creat Clearance w eGFR Random Glucose Calcium Total Bilirubin AST ALT Alkaline Phosphatase Total Protein Albumin Urine Color Urine Appearance Urine pH Ur Specific [place] Urine Protein Urine Glucose (UA) Urine Ketones Urine Blood Urine Nitrite Urine Bilirubin Urine Urobilinogen Ur Leukocyte Esterase RPR Titer Nonreactive LABS NOTED. Assessment: 12/30/16 12:33 WITHDRAWAL SYMPTOMS. Plan: CONTINUE DETOX.
[2016-12-30] MEDS: QUEtiapine FUMARATE 100 MG TABLET (FP) PO SCH (22:57)
[2016-12-30] MEDS: THIAMINE HCL 100 MG TABLET (FP) PO SCH (22:57)
[2016-12-31] MEDS ORDERED: TRIMETHOBENZAMIDE HCL 200MG/2ML INJ IM PRN (00:50)
[2016-12-31] MEDS: chlordiazePOXIDE HCL 25 MG CAPSULE PO SCH ×3 (05:40→17:27)
[2016-12-31] MEDS: METHADONE HCL 5 MG TABLET (FOR DETOX USE ONLY) PO SCH (10:45)
[2016-12-31] MEDS: NICOTINE 21 MG/24 HOURS TOPICAL PATCH TD SCH (10:46)
[2016-12-31] MEDS: amLODIPine BESYLATE 10 MG TABLET (FP) PO SCH (10:46)
[2016-12-31] MEDS: cloNIDine HCL 0.1 MG TABLET PO SCH ×2 (10:46→22:38)
[2016-12-31] MEDS: PRENATAL VITAMINS W/ FOLIC ACID TABLET (FP) PO SCH (10:46)
[2016-12-31] MEDS: HYDROCHLOROTHIAZIDE 25 MG TABLET (FP) PO SCH (10:46)
[2016-12-31] MEDS: IBUPROFEN 400 MG TABLET (FP) PO PRN (12:37)
--- NOTE | 2016-12-31 13:57 | EKG ---
Test Reason : Blood Pressure : / mmHG Vent. Rate : 054 BPM Atrial Rate : 054 BPM P-R Int : 180 ms QRS Dur : 084 ms QT Int : 434 ms P-R-T Axes : 079 077 077 degrees QTc Int : 411 ms SINUS BRADYCARDIA OTHERWISE NORMAL ECG WHEN COMPARED WITH ECG OF 22-AUG-2016 09:16, NO SIGNIFICANT CHANGE WAS FOUND Confirmed by AMAURY HONG MD ([id number]) on 12/31/2016 1:57:30 PM Referred By: Rhett Guido Confirmed By:AMAURY HONG MD
--- NOTE | 2016-12-31 14:01 | PN ---
S CIWA - CIWA Score Nausea/Vomitin Muscle Tremors: 4-Moderate,w/Arms Extend Anxiety: 4-Mod. Anxious/Guarded Agitation: 4-Moderately Restless Paroxysmal Sweats: 3 Orientation: 0-Oriented Tacttile Disturbances: 1-Very Mild Itch/Numbness Auditory Disturbances: 0-None Visual Disturbances: 0-None Headache: 2-Mild CIWA-Ar Total Score: 21 BHS COWS - Scale Resting Pulse: 0= [place] 80 or Below Sweatin=Flushed/Facial Moisture Restless Observation: 3= Extraneous Movement Pupil Size: 0= Normal to Room Light Bone or Joint Aches: 2= Severe Diffuse Aches Runny Nose/ Eye Tearin= Runny Nose/Eyes GI Upset > 30mins: 1= Stomach Cramp Tremor Observation of Outstretched Hands: 2= Slight Tremor Visible Yawning Observation: 1= 1-2x During Session Anxiety or Irritability: 2=Irritable/Anxious Goose Flesh Skin: 0=Smooth Skin COWS Score: 15 [facility] Progress Note (SOAP) Subjective: Sweating, tremor, chills, weakness, back pain, interrupted sleep Objective: 12/31/16 14:01 Last Vital Signs Temp Pulse Resp BP Pulse Ox 100.3 F H 77 18 171/103 12/31/16 13:47 12/31/16 13:47 12/31/16 13:47 12/31/16 13:47 B/P 171/103 Laboratory Tests 12/29/16 12/30/16 12/30/16 23:35 07:45 07:45 WBC 7.9 RBC 5.00 Hgb 13.5 Hct 41.2 MCV 82.3 MCH 27.0 MCHC 32.8 RDW 15.5 Plt Count 355 MPV 7.8 Sodium 140 Potassium 4.0 Chloride 104 Carbon Dioxide 31 Anion Gap 5 L BUN 15 Creatinine 1.1 Creat Clearance w eGFR > 60 Random Glucose 113 H Calcium 9.1 Total Bilirubin 0.4 D AST 11 L D ALT 20 Alkaline Phosphatase 56 Total Protein 6.4 Albumin 3.5 Urine Color Yellow Urine Appearance Slcloudy Urine pH 5.0 Ur Specific [place] >= 1.030 H Urine Protein Negative Urine Glucose (UA) Negative Urine Ketones Negative Urine Blood Negative Urine Nitrite Negative Urine Bilirubin Negative Urine Urobilinogen Negative Ur Leukocyte Esterase Negative RPR Titer 12/30/16 07:45 WBC RBC Hgb Hct MCV MCH MCHC RDW Plt Count MPV Sodium Potassium Chloride Carbon Dioxide Anion Gap BUN Creatinine Creat Clearance w eGFR Random Glucose Calcium Total Bilirubin AST ALT Alkaline Phosphatase Total Protein Albumin Urine Color Urine Appearance Urine pH Ur Specific [place] Urine Protein Urine Glucose (UA) Urine Ketones Urine Blood Urine Nitrite Urine Bilirubin Urine Urobilinogen Ur Leukocyte Esterase RPR Titer Nonreactive Labs noted Assessment: 12/31/16 14:02 Withdrawal symptoms Noted with elevated b/p due to HTN Plan: Continue detox Encouraged to drink lots of water HTN: continue present regimen, consider adding another regimen to HCTZ instead of clonidine
[2016-12-31] MEDS: ACETAMINOPHEN 325 MG TABLET (FP) PO PRN ×2 (15:33→22:37)
[2016-12-31] MEDS: chlordiazePOXIDE 5 MG CAPSULE PO SCH (22:37)
[2016-12-31] MEDS: QUEtiapine FUMARATE 100 MG TABLET (FP) PO SCH (22:37)
[2016-12-31] MEDS: THIAMINE HCL 100 MG TABLET (FP) PO SCH (22:37)
[2017-01-01] MEDS: chlordiazePOXIDE 5 MG CAPSULE PO SCH ×3 (06:30→17:39)
[2017-01-01] MEDS: METHADONE HCL 5 MG TABLET (FOR DETOX USE ONLY) PO SCH (10:13)
[2017-01-01] MEDS: PRENATAL VITAMINS W/ FOLIC ACID TABLET (FP) PO SCH (10:14)
[2017-01-01] MEDS: HYDROCHLOROTHIAZIDE 25 MG TABLET (FP) PO SCH (10:14)
[2017-01-01] MEDS: amLODIPine BESYLATE 10 MG TABLET (FP) PO SCH (10:15)
[2017-01-01] MEDS: NICOTINE 21 MG/24 HOURS TOPICAL PATCH TD SCH (10:15)
[2017-01-01] MEDS: cloNIDine HCL 0.1 MG TABLET PO SCH ×2 (10:15→22:23)
[2017-01-01] MEDS: CYCLOBENZAPRINE HCL 10 MG TABLET (FP) PO PRN (12:12)
--- NOTE | 2017-01-01 12:31 | PN ---
BHS Progress Note (SOAP) Subjective: Sweating, Interrupted Sleep, Tremors, Stomach Cramping, Vomiting, Body Aches. Objective: PT. A & O X 2 (DISORIENTED ABOUT DAY / DATE). NO ACUTE DISTRESS. PT. DENIES CHEST PAIN. 01/01/17 12:28 Vital Signs Temperature 97.9 F 01/01/17 11:01 Pulse Rate 86 01/01/17 11:08 Respiratory Rate 18 01/01/17 11:08 Blood Pressure 142/98 01/01/17 11:08 O2 Sat by Pulse Oximetry (%) Laboratory Tests 12/29/16 12/30/16 12/30/16 23:35 07:45 07:45 WBC 7.9 RBC 5.00 Hgb 13.5 Hct 41.2 MCV 82.3 MCH 27.0 MCHC 32.8 RDW 15.5 Plt Count 355 MPV 7.8 Sodium 140 Potassium 4.0 Chloride 104 Carbon Dioxide 31 Anion Gap 5 L BUN 15 Creatinine 1.1 Creat Clearance w eGFR > 60 Random Glucose 113 H Calcium 9.1 Total Bilirubin 0.4 D AST 11 L D ALT 20 Alkaline Phosphatase 56 Total Protein 6.4 Albumin 3.5 Urine Color Yellow Urine Appearance Slcloudy Urine pH 5.0 Ur Specific [place] >= 1.030 H Urine Protein Negative Urine Glucose (UA) Negative Urine Ketones Negative Urine Blood Negative Urine Nitrite Negative Urine Bilirubin Negative Urine Urobilinogen Negative Ur Leukocyte Esterase Negative RPR Titer 12/30/16 07:45 WBC RBC Hgb Hct MCV MCH MCHC RDW Plt Count MPV Sodium Potassium Chloride Carbon Dioxide Anion Gap BUN Creatinine Creat Clearance w eGFR Random Glucose Calcium Total Bilirubin AST ALT Alkaline Phosphatase Total Protein Albumin Urine Color Urine Appearance Urine pH Ur Specific [place] Urine Protein Urine Glucose (UA) Urine Ketones Urine Blood Urine Nitrite Urine Bilirubin Urine Urobilinogen Ur Leukocyte Esterase RPR Titer Nonreactive LABS NOTED. Assessment: 01/01/17 12:29 WITHDRAWAL SYMPTOMS. Plan: CONTINUE DETOX.
[2017-01-01] MEDS: MAG HYDROX/AL HYDROX/SIMETH 30 ML UNIT-DOSE CUP PO PRN (21:16)
[2017-01-01] MEDS: chlordiazePOXIDE HCL 10 MG CAPSULE PO SCH (22:23)
[2017-01-01] MEDS: QUEtiapine FUMARATE 100 MG TABLET (FP) PO SCH (22:23)
[2017-01-01] MEDS: THIAMINE HCL 100 MG TABLET (FP) PO SCH (22:23)
[2017-01-02] MEDS: chlordiazePOXIDE HCL 10 MG CAPSULE PO SCH ×3 (06:20→17:12)
[2017-01-02] MEDS ORDERED: cloNIDine HCL 0.1 MG TABLET PO ONE (06:44)
--- NOTE | 2017-01-02 06:48 | PN ---
BHS Progress Note Note: BP 169/104 NO HEADACHE,NO SOB,TO GIVE 0.1 MG PO NOW ,BP MONITORING ,CONTINUE DETOX
[2017-01-02] MEDS ORDERED: METHADONE HCL 10 MG TABLET (FOR DETOX USE ONLY) PO SCH (10:00)
[2017-01-02] MEDS: HYDROCHLOROTHIAZIDE 25 MG TABLET (FP) PO SCH (10:24)
[2017-01-02] MEDS: PRENATAL VITAMINS W/ FOLIC ACID TABLET (FP) PO SCH (10:24)
[2017-01-02] MEDS: amLODIPine BESYLATE 10 MG TABLET (FP) PO SCH (10:24)
[2017-01-02] MEDS: cloNIDine HCL 0.1 MG TABLET PO SCH ×2 (10:25→22:27)
[2017-01-02] MEDS: NICOTINE 21 MG/24 HOURS TOPICAL PATCH TD SCH (10:25)
--- NOTE | 2017-01-02 11:05 | PN ---
S Progress Note (SOAP) Subjective: C/O FATIGUE, HEADACHE AND LIGHT HEADED. Objective: 01/02/17 11:04 Vital Signs 01/02/17 01/02/17 01/02/17 03:21 06:08 09:44 Temperature 99.0 F 98.9 F Pulse Rate 77 85 Respiratory 18 18 18 Rate Blood Pressure 169/104 143/96 Laboratory Last Values WBC 7.9 K/mm3 (4.0-10.0) 12/30/16 07:45 RBC 5.00 M/mm3 (4.00-5.60) 12/30/16 07:45 Hgb 13.5 GM/dL (11.7-16.9) 12/30/16 07:45 Hct 41.2 % (35.4-49) 12/30/16 07:45 MCV 82.3 fl (80-96) 12/30/16 07:45 MCH 27.0 pg (25.7-33.7) 12/30/16 07:45 MCHC 32.8 g/dl (32.0-35.9) 12/30/16 07:45 RDW 15.5 % (11.9-15.9) 12/30/16 07:45 Plt Count 355 K/MM3 (134-434) 12/30/16 07:45 MPV 7.8 fl (7.5-11.1) 12/30/16 07:45 Sodium 140 mmol/L (136-145) 12/30/16 07:45 Potassium 4.0 mmol/L (3.5-5.1) 12/30/16 07:45 Chloride 104 mmol/L (98-107) 12/30/16 07:45 Carbon Dioxide 31 mmol/L (21-32) 12/30/16 07:45 Anion Gap 5 (8-16) L 12/30/16 07:45 BUN 15 mg/dL (7-18) 12/30/16 07:45 Creatinine 1.1 mg/dL (0.7-1.3) 12/30/16 07:45 Creat Clearance w eGFR > 60 (>60) 12/30/16 07:45 Random Glucose 113 mg/dL (74-106) H 12/30/16 07:45 Calcium 9.1 mg/dL (8.5-10.1) 12/30/16 07:45 Total Bilirubin 0.4 mg/dL (0.2-1.0) D 12/30/16 07:45 AST 11 U/L (15-37) L D 12/30/16 07:45 ALT 20 U/L (12-78) 12/30/16 07:45 Alkaline Phosphatase 56 U/L (45-117) 12/30/16 07:45 Total Protein 6.4 g/dl (6.4-8.2) 12/30/16 07:45 Albumin 3.5 g/dl (3.4-5.0) 12/30/16 07:45 Urine Color Yellow 12/29/16 23:35 Urine Appearance Slcloudy 12/29/16 23:35 Urine pH 5.0 (5.0-8.0) 12/29/16 23:35 Ur Specific [place] >= 1.030 (1.005-1.025) H 12/29/16 23:35 Urine Protein Negative (NEGATIVE) 12/29/16 23:35 Urine Glucose (UA) Negative (NEGATIVE) 12/29/16 23:35 Urine Ketones Negative (NEGATIVE) 12/29/16 23:35 Urine Blood Negative (NEGATIVE) 12/29/16 23:35 Urine Nitrite Negative (NEGATIVE) 12/29/16 23:35 Urine Bilirubin Negative (NEGATIVE) 12/29/16 23:35 Urine Urobilinogen Negative mg/dL (0.2-1.0) 12/29/16 23:35 Ur Leukocyte Esterase Negative (NEGATIVE) 12/29/16 23:35 RPR Titer Nonreactive (NONREACTIVE) 12/30/16 07:45 Assessment: 01/02/17 11:05 WITHDRAWAL SX Plan: CONTINUE DETOX INCREASE PO FLUIDS.
[2017-01-02] MEDS: CYCLOBENZAPRINE HCL 10 MG TABLET (FP) PO PRN (20:58)
[2017-01-02] MEDS: THIAMINE HCL 100 MG TABLET (FP) PO SCH (22:27)
[2017-01-02] MEDS: QUEtiapine FUMARATE 100 MG TABLET (FP) PO SCH (22:27)
[2017-01-03] MEDS: MAG HYDROX/AL HYDROX/SIMETH 30 ML UNIT-DOSE CUP PO PRN (02:15)
[2017-01-03] MEDS ORDERED: METHADONE HCL 5 MG TABLET (FOR DETOX USE ONLY) PO SCH (06:00)
[2017-01-03 06:17] VITALS: BP 136/82; PULSE 74; TEMP 97.3
--- NOTE | 2017-01-03 06:24 | PN ---
[facility] Progress Note Note: MEDICAL ART THERAPIST called to the floor to assess the pt. Pt. was found laying in bed and he reports he fell in his room. While getting up to go get medicated, he became lightheaded. He fell on the ground and hit the back of his head. No bruises or lacerations noted. Pt. is alert and oriented. He complains of pain to the back of the head and right shoulder (7/10). Pt. to be sent to the ER for further evaluation. Report given to RITO Urbina.
[2017-01-03] MEDS: IBUPROFEN 400 MG TABLET (FP) PO PRN (06:28)
--- NOTE | 2017-01-03 15:09 | DS ---
[facility] Detox Discharge Summary Admission Date: 12/29/16 Discharge Date: 01/03/17 - History Present History: Alcohol Dependence, Cocaine Dependence, Opioid Dependence Additional Comments: DETOX COMPLETED. INSTRUCTED TO FOLLOW UP AT [facility] FOR [facility]ICAL [facility]NAG[facility]. ADDENDUM: PT RETURNED HERE FROM [facility] THIS AFTERNOON TO [employer] HIS BELONGINGS AND TAKEN HOME BY [facility] PER NURSE. REPORTS OF SHOULDER,LUMBER SPINE,HUMERUS AND CHEST X-RAYS = NO ACUTE PATHOLOGY. CERVICAL SPINE AND HEAD CT NO PATHOLOGY. Pertinent Past History: HTN - Physical Exam Results Vital Signs: Vital Signs Temperature 97.3 F L 01/03/17 05:55 Pulse Rate 74 01/03/17 05:55 Respiratory Rate 18 01/03/17 05:55 Blood Pressure 136/82 01/03/17 05:55 O2 Sat by Pulse Oximetry (%) Pertinent Admission Physical Exam Findings: WITHDRAWAL SX Laboratory Last Values WBC 7.9 K/mm3 (4.0-10.0) 12/30/16 07:45 RBC 5.00 M/mm3 (4.00-5.60) 12/30/16 07:45 Hgb 13.5 GM/dL (11.7-16.9) 12/30/16 07:45 Hct 41.2 % (35.4-49) 12/30/16 07:45 MCV 82.3 fl (80-96) 12/30/16 07:45 MCH 27.0 pg (25.7-33.7) 12/30/16 07:45 MCHC 32.8 g/dl (32.0-35.9) 12/30/16 07:45 RDW 15.5 % (11.9-15.9) 12/30/16 07:45 Plt Count 355 K/MM3 (134-434) 12/30/16 07:45 MPV 7.8 fl (7.5-11.1) 12/30/16 07:45 Sodium 140 mmol/L (136-145) 12/30/16 07:45 Potassium 4.0 mmol/L (3.5-5.1) 12/30/16 07:45 Chloride 104 mmol/L (98-107) 12/30/16 07:45 Carbon Dioxide 31 mmol/L (21-32) 12/30/16 07:45 Anion Gap 5 (8-16) L 12/30/16 07:45 BUN 15 mg/dL (7-18) 12/30/16 07:45 Creatinine 1.1 mg/dL (0.7-1.3) 12/30/16 07:45 Creat Clearance w eGFR > 60 (>60) 12/30/16 07:45 Random Glucose 113 mg/dL (74-106) H 12/30/16 07:45 Calcium 9.1 mg/dL (8.5-10.1) 12/30/16 07:45 Total Bilirubin 0.4 mg/dL (0.2-1.0) D 12/30/16 07:45 AST 11 U/L (15-37) L D 12/30/16 07:45 ALT 20 U/L (12-78) 12/30/16 07:45 Alkaline Phosphatase 56 U/L (45-117) 12/30/16 07:45 Total Protein 6.4 g/dl (6.4-8.2) 12/30/16 07:45 Albumin 3.5 g/dl (3.4-5.0) 12/30/16 07:45 Urine Color Yellow 12/29/16 23:35 Urine Appearance Slcloudy 12/29/16 23:35 Urine pH 5.0 (5.0-8.0) 12/29/16 23:35 Ur Specific [place] >= 1.030 (1.005-1.025) H 12/29/16 23:35 Urine Protein Negative (NEGATIVE) 12/29/16 23:35 Urine Glucose (UA) Negative (NEGATIVE) 12/29/16 23:35 Urine Ketones Negative (NEGATIVE) 12/29/16 23:35 Urine Blood Negative (NEGATIVE) 12/29/16 23:35 Urine Nitrite Negative (NEGATIVE) 12/29/16 23:35 Urine Bilirubin Negative (NEGATIVE) 12/29/16 23:35 Urine Urobilinogen Negative mg/dL (0.2-1.0) 12/29/16 23:35 Ur Leukocyte Esterase Negative (NEGATIVE) 12/29/16 23:35 RPR Titer Nonreactive (NONREACTIVE) 12/30/16 07:45 - Treatment Hospital Course: Detox Protocol Followed, Detoxed Safely, Responded well, Discharged Condition Good, Rehab Referral Accepted Patient has Accepted a Rehab Referral to: [facility] OPD - Medication Discharge Medications: Ambulatory Orders Amlodipine Besylate [Norvasc -] 10 mg PO DAILY 12/29/16 Hydrochlorothiazide [Hctz -] 25 mg PO DAILY 12/29/16 - Diagnosis (1) Alcohol dependence with uncomplicated withdrawal Status: Acute (2) Nicotine dependence Status: Acute Qualifiers: Nicotine product type: cigarettes Substance use status: in withdrawal Qualified Code(s): F17.213 - Nicotine dependence, cigarettes, with withdrawal (3) Hypertension Status: Chronic Qualifiers: Hypertension type: essential hypertension Qualified Code(s): I10 - Essential (primary) hypertension (4) Opioid dependence with withdrawal Status: Acute (5) Cocaine dependence with withdrawal Status: Acute - AMA Did Patient Leave Against Medical Advice: No
== END 2017-01-03 13:40 | disposition home or self-care (01) | DRG 773 ==
LOC: YASAS 17:48 → Y3N 21:26
PROVIDERS: ADMIT Internal Medicine; ATTEND Internal Medicine
PROC: HZ2ZZZZ Detoxification Services for Substance Abuse Treatment (ICD-10-PCS; principal; 2016-12-29)
DX: F11.23 Opioid dependence with withdrawal (principal); F10.230 Alcohol dependence with withdrawal, uncomplicated; F14.20 Cocaine dependence, uncomplicated; F17.210 Nicotine dependence, cigarettes, uncomplicated; F19.24 Other psychoactive substance dependence with psychoactive substance-induced mood disorder; F41.9 Anxiety disorder, unspecified; I10 Essential (primary) hypertension; G47.00 Insomnia, unspecified; R51 Headache; M25.511 Pain in right shoulder; Z87.898 Personal history of other specified conditions; Z59.0 Homelessness; W06.XXXA Fall from bed, initial encounter; Y93.89 Activity, other specified; Y92.230 Patient room in hospital as the place of occurrence of the external cause
CPT/HCPCS: 36415; 80053; 81003; 85027; 86593; 93005; 93010

== ENCOUNTER 2017-01-03 06:58 | Emergency (ER) | payer OTHER ==
[2017-01-03 07:11] VITALS: BMI 27.3
--- NOTE | 2017-01-03 09:27 | PDOC ---
History of Present Illness <Ingrid Macias - Last Filed: 01/03/17 09:49> - General History Source: Patient Exam Limitations: No Limitations - History of Present Illness Initial Comments: 01/03/17 10:07 The patient is a 51 year old male, BIBA from [facility] with a significant past medical history of heroin abuse (last use was 5 days ago) and HTN who presents to the emergency department s/p fall. The patient reports while getting out of bed , he tripped on the table leg and fell and injuring his right shoulder and R lower back. +HS but denies any LOC. He reports since the fall having pain in right shoulder with any weight bearing activities or overhead motions. The patient also reports her right shoulder pain often radiates into his right trapezium muscle. He denies any UE/LE numbness/tingling. He denies any recent fevers, chills, headache or dizziness. He denies any recent nausea, vomit, diarrhea or constipation. He denies any recent chest pain or shortness of breath. He denies any recent dysuria, frequency, urgency or hematuria. Allergies: NKA Past surgical history: None reported. Social History: Current smoker (one pack a day). Repoted EtOH use. <Benito Florian - Last Filed: 01/03/17 10:40> <Brian Mendez - Last Filed: 01/03/17 11:34> - General Chief Complaint: Injury Stated Complaint: FALL Time Seen by Provider: 01/03/17 07:23 Past History <Ingrid Macias - Last Filed: 01/03/17 09:49> <Benito Florian - Last Filed: 01/03/17 10:40> - Past Medical History Anemia: No (non compliance) Asthma: No Cancer: No Cardiac Disorders: No CVA: No COPD: No Dementia: No Diabetes: No GI Disorders: No Disorders: No HTN: Yes (on meds) Hypercholesterolemia: No Kidney Stones: No Liver Disease: No Suicide Attempt (Hx): Yes (overdose at age 38) Seizures: No Thyroid Disease: No - Surgical History Abdominal Surgery: No Appendectomy: Yes (lap appenctomy 1992) Cardiac Surgery: No Cholecystectomy: No Lung Surgery: No Neurologic Surgery: No Orthopedic Surgery: Yes (lt clavicle lipoma 2000) - Reproductive History Testicular Surgery: No - Psycho/Social/Smoking Cessation Hx Anxiety: Yes Suicidal Ideation: No Smoking History: Current every day smoker Have you smoked in the past 12 months: Yes Number of Cigarettes Smoked Daily: 20 Information on smoking cessation initiated: No 'Breaking Loose' booklet given: 12/29/16 Hx Alcohol Use: Yes Drug/Substance Use Hx: Yes Substance Use Type: Alcohol, Heroin Hx Substance Use Treatment: Yes ([facility] 08/20/16 to 08/25/16) <Brian Mendez - Last Filed: 01/03/17 11:34> - Past Medical History Allergies/Adverse Reactions: Allergies Allergy/AdvReac Type Severity Reaction Status Date / Time No Known Allergies Allergy Verified 01/03/17 07:06 Home Medications: Ambulatory Orders Amlodipine Besylate [Norvasc -] 10 mg PO DAILY 12/29/16 Hydrochlorothiazide [Hctz -] 25 mg PO DAILY 12/29/16 Review of Systems - Review of Systems Able to Perform ROS?: Yes Comments:: 01/03/17 10:07 GENERAL/CONSTITUTIONAL: No fever or chills. No weakness. HEAD, EYES, EARS, NOSE AND THROAT: No change in vision. No ear pain or discharge. No sore throat. CARDIOVASCULAR: No chest pain or shortness of breath. RESPIRATORY: No cough, wheezing, or hemoptysis. GASTROINTESTINAL: No nausea, vomiting, diarrhea or constipation. GENITOURINARY: No dysuria, frequency, or change in urination. MUSCULOSKELETAL: +right shoulder, lower R back pain. No joint or muscle swelling or pain. No neck. SKIN: No rash NEUROLOGIC: No headache, vertigo, loss of consciousness, or change in strength/ sensation. ENDOCRINE: No increased thirst. No abnormal weight change. HEMATOLOGIC/LYMPHATIC: No anemia, easy bleeding, or history of blood clots. ALLERGIC/IMMUNOLOGIC: No hives or skin allergy. <Benito Florian - Last Filed: 01/03/17 10:40> *Physical Exam - Vital Signs Last Vital Signs Temp Pulse Resp BP Pulse Ox 97.3 F L 69 14 163/111 98 01/03/17 07:06 01/03/17 07:06 01/03/17 07:06 01/03/17 07:06 01/03/17 07:06 <Ingrid Macias - Last Filed: 01/03/17 09:49> - Vital Signs Last Vital Signs Temp Pulse Resp BP Pulse Ox 97.3 F L 69 14 163/111 98 01/03/17 07:06 01/03/17 07:06 01/03/17 07:06 01/03/17 07:06 01/03/17 07:06 - Physical Exam Comments: 01/03/17 10:07 GENERAL: Awake, alert, and fully oriented, in no acute distress HEAD: No signs of trauma EYES: PERRLA, EOMI, sclera anicteric, conjunctiva clear ENT: Auricles normal inspection, hearing grossly normal, nares patent, oropharynx clear without exudates. Moist mucosa NECK: Normal ROM, supple, no lymphadenopathy, JVD, or masses. No midline spinal tenderness to palpation. BACK:No midline spinal tenderness to palpation. LUNGS: Breath sounds equal, clear to auscultation bilaterally. No wheezes, and no crackles HEART: Regular rate and rhythm, normal S1 and S2, no murmurs, rubs or gallops ABDOMEN: Not remarkable. Soft, nontender, normoactive bowel sounds. No guarding , no rebound. No masses EXTREMITIES: Tenderness to palpation over the right shoulder and Proximal humerus. No deformity, erythema or open wounds. Pulses intact and 2+ peripherally. NEUROLOGICAL: Normal speech, cranial nerves intact, negative pronator drift, 5/ 5 strength in all 4 extremities, normal sensation to light touch in all 4 extremities, normal cerebellar exam, normal gait, normal reflexes and tone SKIN: Warm, Dry, normal turgor, no rashes or lesions noted. <Benito Florian - Last Filed: 01/03/17 10:40> - Vital Signs Last Vital Signs Temp Pulse Resp BP Pulse Ox 97.3 F L 69 14 163/111 98 01/03/17 07:06 01/03/17 07:06 01/03/17 07:06 01/03/17 07:06 01/03/17 07:06 <Brian Mendez - Last Filed: 01/03/17 11:34> ED Treatment Course - RADIOLOGY Radiograph Interpretation: 01/03/17 10:[address] w/out contrast Impression:No evidence of a focal intracranial lesion or hemorrhage seen. Deformity of the right orbital medial wall, likely old. Cervical spine w/out contrast Impression:The alignment is satisfactory. No gross fracture or subluxation is seen. No jumped facets are identified. Reported by: Dr. Lionel Lopes Chest x-ray Impression: No acute pathology. No significant change. Right Humerus x-ray Impression: No acute pathology Lumbar Spine x-ray Impression: No acute pathology. Degenerative changes with wedging. Narrowed L5- S1 intervertebral disc space. Right shoulder x-ray Impression: No acute pathology Reported by: Dr. Mendel Barnard <Ingrid Macias - Last Filed: 01/03/17 09:49> - RADIOLOGY Radiology Studies Ordered: Category Date Time Status CERVICAL SPINE CT W/O CONTR [CT] Stat CT Scan 01/03/17 08:[address] WITHOUT CONTRAST [CT] Stat CT Scan 01/03/17 08:26 Completed CHEST PA & LAT [RAD] Stat Radiology 01/03/17 08:27 Ordered HUMERUS-RIGHT [RAD] Stat Radiology 01/03/17 08:27 Ordered SHOULDER-RIGHT [RAD] Stat Radiology 01/03/17 08:28 Ordered SPINE-LUMBAR SACRAL [RAD] Stat Radiology 01/03/17 08:28 Ordered <Brian Mendez - Last Filed: 01/03/17 11:34> Medical Decision Making - Medical Decision Making 01/03/17 10:34 51-year-old male presents with a mechanical fall with head strike c/o R shoulder pain radiating to R trapezius and R lower back pain. Exam with tenderness to palpation over the right proximal humerus and right shoulder. No midline spinal ttp. We will obtain imaging and reevaluate patient. -chest, R humerus/shoulder, LS spine XR -CT head and c-spine -reassess 01/03/17 11:12 X-rays with no acute findings. CT of the head with no acute findings but a likely chronic R medial orbital bone fracture. On reevaluation patient with no orbital bony pain and denies injuring any part of his face when he fell this morning. Likely old fracture. CT C-spine with no acute findings however patient with multiple bulging disks. I discussed these findings with the patient and advised him to follow up with his primary care doctor for further management. Patient is ambulating in the ED. He is able to range his right upper extremity fully with mild pain pablo when lifting overhead. Possible ligamentous injury of the R shoulder, which I discussed with patient. He will follow-up with his primary care doctor. Pt's BP elevated to 156/104 on discharge, reports he did not take his hydrochlorothiazide or amlodipine this morning 2/2 to his fall but that he will take them as soon as he gets back to [facility]. I discussed the physical exam findings, ancillary test results and final diagnoses with the patient. I answered all of the patient's questions. The patient was satisfied with the care received and felt comfortable with the discharge plan and treatment plan. The patient will call their primary care physician within 24 hours to arrange follow-up and will return to the Emergency Department with any new, persistent or worsening symptoms. <Brian Mendez - Last Filed: 01/03/17 11:34> *DC/Admit/Observation/Transfer <GilbertoIngrid - Last Filed: 01/03/17 09:49> - Attestations Scribe Attestion: 01/03/17 10:07 Documentation prepared by Benito Florian, acting as medical anthropology director for Brian Mendez MD. <Benito Florian - Last Filed: 01/03/17 10:40> - Discharge Dispostion Admit: No - Attestations Physician Attestion: 01/03/17 11:19 I, Dr. Brian Mendez MD, attest that this document has been prepared under my direction and personally reviewed by me in its entirety. I further attest, that it accurately reflects all work, treatment, procedures and medical decision -making performed by me. <Brian Mendez - Last Filed: 01/03/17 11:34> Diagnosis at time of Disposition: Fall Qualifiers: Encounter type: initial encounter Qualified Code(s): W19.XXXA - Unspecified fall, initial encounter - Patient Instructions Additional Instructions: You CT scan of your neck shows some bulging discs. Although this finding does not need immediate intervention, please follow up with your primary care doctor within 1 week to discuss this finding. Your initial blood pressure was high in the Emergency Department, please follow up with your primary doctor for this as well. Please return to the emergency department if you experience any worsening pain, numbness, weakness, chest pain, shortness of breath or any concerning symptoms.
[2017-01-03 11:32] VITALS: BP 156/104; PULSE 67; TEMP 98.5
== END 2017-01-03 13:19 | disposition home or self-care (01) ==
LOC: JER 06:58
DX: M25.511 Pain in right shoulder (principal); M54.5 Low back pain; F11.10 Opioid abuse, uncomplicated; F17.210 Nicotine dependence, cigarettes, uncomplicated; Z91.14 Patient's other noncompliance with medication regimen; Z91.5 Personal history of self-harm; Z59.0 Homelessness; W18.09XA Striking against other object with subsequent fall, initial encounter; Y93.01 Activity, walking, marching and hiking; Y92.230 Patient room in hospital as the place of occurrence of the external cause
CPT/HCPCS: 70450-TC; 71020-TC; 72100-TC; 72125-TC; 73030-TC-RT; 73060-TC-RT; 99282-25

== ENCOUNTER 2017-12-22 19:42 | Inpatient (IN) | payer OTHER ==
[2017-12-22 20:25] VITALS: BMI 28.8
--- NOTE | 2017-12-22 21:15 | HP ---
COWS - Scale Resting Pulse: 0= MA 80 or Below Sweatin= Chills/Flushing Restless Observation: 1= Difficult to Sit Still Pupil Size: 0= Normal to Room Light Bone or Joint Aches: 2= Severe Diffuse Aches Runny Nose/ Eye Tearin= Runny Nose/Eyes GI Upset > 30mins: 2= Nausea/Diarrhea (diarrhea x 3) Tremor Observation: 2= Slight Tremor Visible Yawning Observation: 1= 1-2x During Session Anxiety or Irritability: 4=Extreme Anxiety Goose Flesh Skin: 0=Smooth Skin COWS Score: 15 CIWA Score - CIWA Score Nausea/Vomitin Muscle Tremors: 3 Anxiety: 3 Agitation: 2 Paroxysmal Sweats: 1-Minimal Palms Moist Orientation: 1-Uncertain about Date Tacttile Disturbances: 0-None Auditory Disturbances: 0-None Visual Disturbances: 0-None Headache: 0-None Present CIWA-Ar Total Score: 13 Admission ROS S - HPI Chief Complaint: Alcohol and heroin withdrawal symptoms Allergies/Adverse Reactions: Allergies Allergy/AdvReac Type Severity Reaction Status Date / Time No Known Allergies Allergy Verified 01/03/17 07:06 History of Present Illness: 52 years old with a long history of heroin and alcohol dependence is seeking admission to detox. Patient has been to previous detox and reports insignificant period of sobriety. He has medical history of HTN, anemia, rheumatoid arthritis, anxiety and depression. He reports suicide attempt in 1992 and denies suicidal ideation at this time. Exam Limitations: No Limitations - Ebola screening Have you traveled outside of the country in the last 21 days: No (N) Have you had contact with anyone from an Ebola affected area: No Have you been sick,other than usual withdrawal symptoms: No Do you have a fever: No - Review of Systems Constitutional: Chills, Malaise, Changes in sleep EENT: reports: Sinus Pressure, Other (h/o sleep apnea) Respiratory: reports: No Symptoms reported Cardiac: reports: No Symptoms Reported GI: reports: Diarrhea, Nausea, Poor Appetite, Poor Fluid Intake, Abdominal cramping : reports: No Symptoms Reported Musculoskeletal: reports: Back Pain Integumentary: reports: Dryness Neuro: reports: Tremors Endocrine: reports: No Symptoms Reported Hematology: reports: No Symptoms Reported Psychiatric: reports: Agitated, Anxious, Depressed Other Systems: Reviewed and Negative Patient History - Patient Medical History Hx Anemia: Yes (Ferrous sulfate) Hx Asthma: No Hx Chronic Obstructive Pulmonary Disease (COPD): No Hx Cancer: No Hx Cardiac Disorders: No Hx Hypertension: Yes (Amlodipine) Hx Hypercholesterolemia: No Hx Pacemaker: No HX Cerebrovascular Accident: No Hx Seizures: No Hx Dementia: No Hx Diabetes: No Hx Gastrointestinal Disorders: No Hx Liver Disease: No Hx Genitourinary Disorders: No Hx Sexually Transmitted Disorders: No Hx Renal Disease (ESRD): No Hx Thyroid Disease: No Hx Human Immunodeficiency Virus (HIV): No (last 08/19/16 negative) Hx Hepatitis C: No Hx Depression: Yes (anxiety) Hx Suicide Attempt: Yes (Attempt at age 38, denies suicidal) Hx Bipolar Disorder: No Hx Schizophrenia: No Other Medical History: Anxiety, rheumatoid arthritis - Patient Surgical History Past Surgical History: Yes Hx Neurologic Surgery: No Hx Cataract Extraction: No Hx Cardiac Surgery: No Hx Lung Surgery: No Hx Breast Surgery: No Hx Breast Biopsy: No Hx Abdominal Surgery: No Hx Appendectomy: Yes (lap appenctomy 1992) Hx Cholecystectomy: No Hx Genitourinary Surgery: No Hx Section: No Hx Orthopedic Surgery: Yes (lt clavicle lipoma 2000) Anesthesia Reaction: No - PPD History Previous Implant?: No (PPD POSITIVE. TREATED ) Documented Results: Positive w/o proof Implanted On Prior R Admission?: No PPD to be Administered?: No - Reproductive History Patient is a Female of Child Bearing Age (11 -55 yrs old): No (male) - Smoking Cessation Smoking history: Current every day smoker Have you smoked in the past 12 months: Yes Aproximately how many cigarettes per day: 20 Hx Chewing Tobacco Use: No Initiated information on smoking cessation: Yes 'Breaking Loose' booklet given: 12/22/17 - Substance & Tx. History Hx Alcohol Use: Yes Substance Use Type: Alcohol, Cocaine, Heroin - Substances Abused Alcohol Route: Oral Frequency: Daily Amount used: 2 PINTS Age of first use: 18 Date of Last Use: 12/22/17 Cocaine Route: Smoking Frequency: Daily Amount used: 10 BAGS Age of first use: 29 Date of Last Use: 12/22/17 Heroin Route: SNIFF Frequency: Daily Amount used: 10-15 BAgs Age of first use: 29 Date of Last Use: 12/22/17 Family Disease History - Family Disease History Family Disease History: Heart Disease: Mother (Triple bypass), Other: Brother ( dsa) Admission Physical Exam [facility] - Vital Signs Vital Signs: Vital Signs - 24 hr 12/22/17 20:23 Temperature 98.1 F Pulse Rate 69 Respiratory 18 Rate Blood Pressure 120/76 - Physical General Appearance: Yes: Moderate Distress, Tremorous, Irritable, Sweating, Anxious HEENTM: Yes: EOMI, Normal ENT Inspection, Normocephalic, Normal Voice Respiratory: Yes: Lungs Clear, Normal Breath Sounds, No Respiratory Distress Neck: Yes: Supple Breast: Yes: Breast Exam Deferred Cardiology: Yes: Regular Rhythm, Regular Rate Abdominal: Yes: Normal Bowel Sounds, Soft Genitourinary: Yes: Within Normal Limits Back: Yes: Normal Inspection Musculoskeletal: Yes: Back pain, Joint swelling, Muscle Pain Extremities: Yes: Tremors Neurological: Yes: Alert, Normal Mood/Affect Integumentary: Yes: Warm Lymphatic: Yes: Within Normal Limits - Diagnostic (1) Alcohol dependence with uncomplicated withdrawal Current Visit: Yes Status: Chronic (2) Anxiety Current Visit: Yes Status: Chronic (3) Cocaine dependence with withdrawal Current Visit: Yes Status: Chronic (4) Depression Current Visit: Yes Status: Chronic Qualifiers: Depression Type: unspecified Qualified Code(s): F32.9 - Major depressive disorder, single episode, unspecified (5) Nicotine dependence Current Visit: Yes Status: Chronic Qualifiers: Nicotine product type: cigarettes Substance use status: in withdrawal Qualified Code(s): F17.213 - Nicotine dependence, cigarettes, with withdrawal (6) Opioid dependence with withdrawal Current Visit: Yes Status: Chronic (7) Uncomplicated sedative, hypnotic or anxiolytic withdrawal Current Visit: Yes Status: Chronic (8) Hypertension Current Visit: No Status: Chronic Qualifiers: Hypertension type: essential hypertension Qualified Code(s): I10 - Essential (primary) hypertension (9) Positive PPD, treated Current Visit: Yes Status: Chronic Cleared for Admission [facility] - Detox or Rehab [facility] Level of Care: Medically Managed Detox Regimen/Protocol: Methadone/Librium [facility] Breath Alcohol Content Breath Alcohol Content: 0 Urine Drug Screen - Results Drug Screen Negative: No Urine Drug Screen Results: LUIS-Cocaine, OPI-Opiates, BZO-Benzodiazepines, MTD- Methadone
[2017-12-22] MEDS ORDERED: chlordiazePOXIDE HCL 25 MG CAPSULE PO PRN (21:31)
[2017-12-22] MEDS ORDERED: LOPERAMIDE HCL 2 MG CAPSULE PO PRN (21:31)
[2017-12-22] MEDS ORDERED: MAGNESIUM HYDROX 2400MG/30ML ORAL SUSPENSION 30 ML CUP PO PRN (21:31)
[2017-12-22] MEDS ORDERED: MENTHOL/PHENOL 1 EACH UD MM PRN (21:31)
[2017-12-22] MEDS ORDERED: MAGNESIUM CITRATE 300 ML BOTTLE PO PRN (21:31)
[2017-12-22] MEDS ORDERED: guaiFENesin/D-METHORPHAN HB 10 ML UNIT-DOSE CUPS PO PRN (21:31)
[2017-12-22] MEDS ORDERED: P-EPHED 60MG/TRIPROLIDI 2.5MG TABLET PO PRN (21:31)
[2017-12-22] MEDS ORDERED: NICOTINE POLACRILEX 2 MG GUM BC PRN (21:31)
[2017-12-22] MEDS ORDERED: IBUPROFEN 400 MG TABLET (FP) PO PRN (21:31)
[2017-12-22] MEDS ORDERED: METHADONE HCL 10 MG TABLET (FOR DETOX USE ONLY) PO ONE ×2 (21:45→23:00)
[2017-12-22] MEDS: THIAMINE HCL 100 MG TABLET (FP) PO SCH (23:55)
[2017-12-22] MEDS: chlordiazePOXIDE HCL 25 MG CAPSULE PO SCH (23:56)
[2017-12-22] MEDS: MELATONIN 5 MG TABLETS PO PRN (23:58)
[2017-12-23] MEDS: chlordiazePOXIDE HCL 25 MG CAPSULE PO SCH ×4 (06:00→22:21)
[2017-12-23] MEDS ORDERED: METHADONE HCL 10 MG TABLET (FOR DETOX USE ONLY) PO SCH (10:00)
[2017-12-23 10:18] LABS: HEMATOCRIT 34.9 % (35.4-49); HEMOGLOBIN 11.3 GM/dL (11.7-16.9); MCH 26.1 pg (25.7-33.7); MCHC 32.4 g/dl (32.0-35.9); MEAN CELL VOLUME 80.6 fl (80-96); MEAN PLT VOLUME 7.9 fl (7.5-11.1); PLATELET COUNT 354 K/MM3 (134-434); RBC 4.33 M/mm3 (4.00-5.60); RDW 17.3 % (11.9-15.9); WHITE BLOOD COUNT 9.9 K/mm3 (4.0-10.0)
[2017-12-23] MEDS: FERROUS SO4 325 MG TABLET (FP) PO SCH (10:19)
[2017-12-23] MEDS: PRENATAL VITAMINS W/ FOLIC ACID TABLET (FP) PO SCH (10:20)
[2017-12-23] MEDS: NICOTINE 14 MG/24 HOURS TOPICAL PATCH TD SCH (10:20)
--- NOTE | 2017-12-23 10:31 | CONSULT ---
[facility] Psychiatric Consult - Data Date of interview: 12/23/17 Admission source: Self-referred Identifying data: Patient is a 52 y/o male single, unemployed, homeless, father of 3 SSI dependent Substance Abuse History: Here for cocaine and alcohol , he has been admitted to Detox about 4 times during a 20 years period of subtance use , winter cklaimed he has been sober on and off. Uses cocaine daily and drink liquor. He reports black speels no seizure. Refer to addiction counselor summary for e detailed drug history Medical History: Medical history is significant for HTN, Rh arthritis. esophageal ulcer, anemia, Obstructive sleep apnea. Past surgical history Left clavicle lipoma. Appendectomy in 1992 Psychiatric History: Past psychiatric hospitalization for depression and anxiety , has bee off his medciatio for the past couple of monthd due to homelesness. Meds Remeron and Seroquel. He denies feeling depression, psychosis or mood swings. Decline to take neuroleptic medications at this time. Physical/Sexual Abuse/Trauma History: Denies history of abuse of domestic violence Mental Status Exam - Mental Status Exam Alert and Oriented to: Place, Person Cognitive Function: Grossly Intact Patient Appearance: Unkempt Mood: Euthymic Affect: Appropriate Patient Behavior: Cooperative Speech Pattern: Clear Voice Loudness: Normal Thought Process: Intact Thought Disorder: Not Present Hallucinations: None Suicidal Ideation: None Homicidal Ideation: None Insight/Judgement: Poor Sleep: Poorly Appetite: Fair Muscle strength/Tone: Normal Gait/Station: Normal Psychiatric Findings - Problem List ([place] 1, 2,3) (1) Insomnia Current Visit: No Status: Acute (2) Substance induced mood disorder Current Visit: No Status: Acute (3) Alcohol dependence with uncomplicated withdrawal Current Visit: No Status: Chronic (4) Cocaine dependence with withdrawal Current Visit: No Status: Chronic (5) Hypertension Current Visit: No Status: Chronic Qualifiers: Hypertension type: essential hypertension Qualified Code(s): I10 - Essential (primary) hypertension (6) MDD (major depressive disorder) Current Visit: No Status: Chronic - Initial Treatment Plan Initial Treatment Plan: Patient decline his neuroleptic medications at this time. Continue Detox treatment. Monitor progress. Melatonin 5 mg po q hs prn
[2017-12-23 10:32] LABS: CHLORIDE 110 mmol/L (98-107); SODIUM 144 mmol/L (136-145)
[2017-12-23 10:38] LABS: ALBUMIN 3.4 g/dl (3.4-5.0); ALK PHOS 54 U/L (45-117); ANION GAP 7 (8-16); BILIRUBIN,TOTAL 0.2 mg/dL (0.2-1.0); BLOOD UREA NITROGEN 14 mg/dL (7-18); CALCIUM 8.8 mg/dL (8.5-10.1); CO2 27 mmol/L (21-32); CREATININE 1.2 mg/dL (0.7-1.3); GLUCOSE,RANDOM 94 mg/dL (74-106); SGOT/AST 9 U/L (15-37); SGPT/ALT 18 U/L (12-78); TOT PROT 6.4 g/dl (6.4-8.2)
[2017-12-23] MEDS: amLODIPine BESYLATE 10 MG TABLET (FP) PO SCH (10:46)
[2017-12-23] MEDS ORDERED: PANTOPRAZOLE 40 MG TABLET (FP) PO ONE (10:57)
--- NOTE | 2017-12-23 16:12 | PN ---
S CIWA - CIWA Score Nausea/Vomitin Muscle Tremors: 4-Moderate,w/Arms Extend Anxiety: 4-Mod. Anxious/Guarded Agitation: 4-Moderately Restless Paroxysmal Sweats: 3 Orientation: 0-Oriented Tacttile Disturbances: 1-Very Mild Itch/Numbness Auditory Disturbances: 0-None Visual Disturbances: 0-None Headache: 0-None Present CIWA-Ar Total Score: 19 BHS COWS - Scale Resting Pulse: 0= [place] 80 or Below Sweatin= Chills/Flushing Restless Observation: 3= Extraneous Movement Pupil Size: 1= Pupils >than Normal Bone or Joint Aches: 2= Severe Diffuse Aches Runny Nose/ Eye Tearin= Runny Nose/Eyes GI Upset > 30mins: 2= Nausea/Diarrhea Tremor Observation of Outstretched Hands: 2= Slight Tremor Visible Yawning Observation: 1= 1-2x During Session Anxiety or Irritability: 2=Irritable/Anxious Goose Flesh Skin: 0=Smooth Skin COWS Score: 16 BHS Progress Note (SOAP) Subjective: Sweating, chills, tremor, interrupted sleep, stomach ache. Patient reports having esophageal ulcer and takes protonix at home and requesting to resume it along with his colace. Objective: 12/23/17 16:11 Last Vital Signs Temp Pulse Resp BP Pulse Ox 97.8 F 62 20 125/90 12/23/17 14:57 12/23/17 14:57 12/23/17 14:57 12/23/17 14:57 Laboratory Tests 12/23/17 12/23/17 12/23/17 07:40 07:40 07:40 WBC 9.9 RBC 4.33 Hgb 11.3 L Hct 34.9 L D MCV 80.6 MCH 26.1 MCHC 32.4 RDW 17.3 H Plt Count 354 MPV 7.9 Sodium 144 Potassium 4.0 Chloride 110 H Carbon Dioxide 27 Anion Gap 7 L BUN 14 Creatinine 1.2 Creat Clearance w eGFR > 60 Random Glucose 94 Calcium 8.8 Total Bilirubin 0.2 AST 9 L ALT 18 Alkaline Phosphatase 54 Total Protein 6.4 Albumin 3.4 RPR Titer Nonreactive Labs reviewed Assessment: 12/23/17 16:11 Withdrawal symptoms Plan: Continue detox Encouraged PO water hydration
[2017-12-23] MEDS: THIAMINE HCL 100 MG TABLET (FP) PO SCH (22:21)
[2017-12-23] MEDS: DOCUSATE SODIUM 100 MG CAPSULE (FP) PO SCH (22:21)
[2017-12-23] MEDS: MELATONIN 5 MG TABLETS PO PRN (22:22)
[2017-12-24 02:51] LABS: URINE APPEARANCE CLEAR; URINE BILIRUBIN NEGATIVE (<2.0 mg/dL); URINE COLOR YELLOW; URINE GLUCOSE (UA) NEGATIVE (NEGATIVE); URINE KETONE NEGATIVE (NEGATIVE); URINE LEUK ESTERASE NEGATIVE (NEGATIVE); URINE NITRITE NEGATIVE (NEGATIVE); URINE PROTEIN NEGATIVE (NEGATIVE); URINE UROBILINOGEN NEGATIVE mg/dL (0.2-1.0)
[2017-12-24] MEDS: chlordiazePOXIDE HCL 25 MG CAPSULE PO SCH ×3 (05:31→17:11)
[2017-12-24] MEDS: PRENATAL VITAMINS W/ FOLIC ACID TABLET (FP) PO SCH (11:09)
[2017-12-24] MEDS: PANTOPRAZOLE 40 MG TABLET (FP) PO SCH (11:09)
[2017-12-24] MEDS: FERROUS SO4 325 MG TABLET (FP) PO SCH (11:09)
[2017-12-24] MEDS: NICOTINE 14 MG/24 HOURS TOPICAL PATCH TD SCH (11:09)
[2017-12-24] MEDS: amLODIPine BESYLATE 10 MG TABLET (FP) PO SCH (11:09)
[2017-12-24] MEDS: METHADONE HCL 5 MG TABLET (FOR DETOX USE ONLY) PO SCH (11:10)
--- NOTE | 2017-12-24 11:54 | EKG ---
Test Reason : Blood Pressure : / mmHG Vent. Rate : 064 BPM Atrial Rate : 064 BPM P-R Int : 170 ms QRS Dur : 084 ms QT Int : 396 ms P-R-T Axes : 076 067 066 degrees QTc Int : 408 ms NORMAL SINUS RHYTHM NORMAL ECG WHEN COMPARED WITH ECG OF 29-DEC-2016 21:55, T WAVE VARIATION Confirmed by ARA MCKNIGHT MD ([id number]) on 12/24/2017 11:54:21 AM Referred By: Confirmed By:ARA MCKNIGHT MD
--- NOTE | 2017-12-24 13:34 | PN ---
S CIWA - CIWA Score Nausea/Vomitin-No Nausea/No Vomiting Muscle Tremors: 2 Anxiety: 4-Mod. Anxious/Guarded Agitation: 0-Normal Activity Paroxysmal Sweats: 3 Orientation: 0-Oriented Tacttile Disturbances: 2-Mild Itch/Numbness/Burn Auditory Disturbances: 0-None Visual Disturbances: 2-Mild Sensitivity Headache: 0-None Present CIWA-Ar Total Score: 13 S COWS - Scale Resting Pulse: 0= [place] 80 or Below Sweatin= Chills/Flushing Restless Observation: 1= Difficult to Sit Still Pupil Size: 0= Normal to Room Light Bone or Joint Aches: 2= Severe Diffuse Aches Runny Nose/ Eye Tearin= None GI Upset > 30mins: 1= Stomach Cramp Tremor Observation of Outstretched Hands: 2= Slight Tremor Visible Yawning Observation: 2= >3x During Session Anxiety or Irritability: 2=Irritable/Anxious Goose Flesh Skin: 0=Smooth Skin COWS Score: 11 S Progress Note (SOAP) Subjective: Body Aches, Anxious, Sweating, Stomach Cramping. Objective: PATIENT A & O X 3. NO ACUTE DISTRESS. 12/24/17 13:35 Vital Signs Temperature 97.4 F L 12/24/17 09:09 Pulse Rate 64 12/24/17 09:09 Respiratory Rate 18 12/24/17 09:09 Blood Pressure 165/85 12/24/17 09:09 O2 Sat by Pulse Oximetry (%) Laboratory Tests 12/23/17 12/23/17 12/23/17 07:40 07:40 07:40 WBC 9.9 RBC 4.33 Hgb 11.3 L Hct 34.9 L D MCV 80.6 MCH 26.1 MCHC 32.4 RDW 17.3 H Plt Count 354 MPV 7.9 Sodium 144 Potassium 4.0 Chloride 110 H Carbon Dioxide 27 Anion Gap 7 L BUN 14 Creatinine 1.2 Creat Clearance w eGFR > 60 Random Glucose 94 Calcium 8.8 Total Bilirubin 0.2 AST 9 L ALT 18 Alkaline Phosphatase 54 Total Protein 6.4 Albumin 3.4 Urine Color Urine Appearance Urine pH Ur Specific [place] Urine Protein Urine Glucose (UA) Urine Ketones Urine Blood Urine Nitrite Urine Bilirubin Urine Urobilinogen Ur Leukocyte Esterase RPR Titer Nonreactive 12/23/17 22:23 WBC RBC Hgb Hct MCV MCH MCHC RDW Plt Count MPV Sodium Potassium Chloride Carbon Dioxide Anion Gap BUN Creatinine Creat Clearance w eGFR Random Glucose Calcium Total Bilirubin AST ALT Alkaline Phosphatase Total Protein Albumin Urine Color Yellow Urine Appearance Clear Urine pH 5.0 Ur Specific [place] 1.021 Urine Protein Negative Urine Glucose (UA) Negative Urine Ketones Negative Urine Blood Negative Urine Nitrite Negative Urine Bilirubin Negative Urine Urobilinogen Negative Ur Leukocyte Esterase Negative RPR Titer LABS NOTED. Assessment: 12/24/17 13:35 WITHDRAWAL SYMPTOMS. Plan: CONTINUE DETOX.
[2017-12-24] MEDS: chlordiazePOXIDE 5 MG CAPSULE PO SCH (22:00)
[2017-12-24] MEDS: MELATONIN 5 MG TABLETS PO PRN (22:01)
[2017-12-24] MEDS: THIAMINE HCL 100 MG TABLET (FP) PO SCH (22:01)
[2017-12-24] MEDS: DOCUSATE SODIUM 100 MG CAPSULE (FP) PO SCH (22:01)
[2017-12-25] MEDS: MAG HYDROX/AL HYDROX/SIMETH 30 ML UNIT-DOSE CUP PO PRN ×3 (05:10→22:27)
[2017-12-25] MEDS: chlordiazePOXIDE 5 MG CAPSULE PO SCH ×3 (06:00→17:45)
[2017-12-25] MEDS: FERROUS SO4 325 MG TABLET (FP) PO SCH (10:05)
[2017-12-25] MEDS: amLODIPine BESYLATE 10 MG TABLET (FP) PO SCH (10:06)
[2017-12-25] MEDS: PANTOPRAZOLE 40 MG TABLET (FP) PO SCH (10:06)
[2017-12-25] MEDS: METHADONE HCL 5 MG TABLET (FOR DETOX USE ONLY) PO SCH (10:07)
[2017-12-25] MEDS: PRENATAL VITAMINS W/ FOLIC ACID TABLET (FP) PO SCH (10:09)
[2017-12-25] MEDS: NICOTINE 14 MG/24 HOURS TOPICAL PATCH TD SCH (10:09)
[2017-12-25] MEDS ORDERED: CYCLOBENZAPRINE HCL 10 MG TABLET (FP) PO PRN (12:35)
--- NOTE | 2017-12-25 14:02 | PN ---
BHS Progress Note (SOAP) Subjective: Interrupted Sleep, Body Aches, Stomach Cramping. Objective: PATIENT A & O X 3, OBSERVED AMBULATING ON UNIT. NO ACUTE DISTRESS. 12/25/17 14:00 Vital Signs Temperature 97.2 F L 12/25/17 09:33 Pulse Rate 67 12/25/17 09:33 Respiratory Rate 18 12/25/17 09:33 Blood Pressure 130/88 12/25/17 09:33 O2 Sat by Pulse Oximetry (%) Laboratory Tests 12/23/17 12/23/17 12/23/17 07:40 07:40 07:40 WBC 9.9 RBC 4.33 Hgb 11.3 L Hct 34.9 L D MCV 80.6 MCH 26.1 MCHC 32.4 RDW 17.3 H Plt Count 354 MPV 7.9 Sodium 144 Potassium 4.0 Chloride 110 H Carbon Dioxide 27 Anion Gap 7 L BUN 14 Creatinine 1.2 Creat Clearance w eGFR > 60 Random Glucose 94 Calcium 8.8 Total Bilirubin 0.2 AST 9 L ALT 18 Alkaline Phosphatase 54 Total Protein 6.4 Albumin 3.4 Urine Color Urine Appearance Urine pH Ur Specific [place] Urine Protein Urine Glucose (UA) Urine Ketones Urine Blood Urine Nitrite Urine Bilirubin Urine Urobilinogen Ur Leukocyte Esterase RPR Titer Nonreactive 12/23/17 22:23 WBC RBC Hgb Hct MCV MCH MCHC RDW Plt Count MPV Sodium Potassium Chloride Carbon Dioxide Anion Gap BUN Creatinine Creat Clearance w eGFR Random Glucose Calcium Total Bilirubin AST ALT Alkaline Phosphatase Total Protein Albumin Urine Color Yellow Urine Appearance Clear Urine pH 5.0 Ur Specific [place] 1.021 Urine Protein Negative Urine Glucose (UA) Negative Urine Ketones Negative Urine Blood Negative Urine Nitrite Negative Urine Bilirubin Negative Urine Urobilinogen Negative Ur Leukocyte Esterase Negative RPR Titer labs noted. Assessment: 12/25/17 14:00 WITHDRAWAL SYMPTOMS. Plan: CONTINUE DETOX.
[2017-12-25] MEDS: DOCUSATE SODIUM 100 MG CAPSULE (FP) PO SCH (22:21)
[2017-12-25] MEDS: MELATONIN 5 MG TABLETS PO PRN (22:21)
[2017-12-25] MEDS: THIAMINE HCL 100 MG TABLET (FP) PO SCH (22:22)
[2017-12-25] MEDS: chlordiazePOXIDE HCL 10 MG CAPSULE PO SCH (22:49)
[2017-12-26] MEDS: chlordiazePOXIDE HCL 10 MG CAPSULE PO SCH ×3 (06:13→18:05)
[2017-12-26] MEDS ORDERED: METHADONE HCL 10 MG TABLET (FOR DETOX USE ONLY) PO SCH (10:00)
[2017-12-26] MEDS: PANTOPRAZOLE 40 MG TABLET (FP) PO SCH (10:37)
[2017-12-26] MEDS: PRENATAL VITAMINS W/ FOLIC ACID TABLET (FP) PO SCH (10:37)
[2017-12-26] MEDS: NICOTINE 14 MG/24 HOURS TOPICAL PATCH TD SCH (10:38)
[2017-12-26] MEDS: FERROUS SO4 325 MG TABLET (FP) PO SCH (10:38)
[2017-12-26] MEDS: amLODIPine BESYLATE 10 MG TABLET (FP) PO SCH (10:38)
[2017-12-26] MEDS ORDERED: TRIMETHOBENZAMIDE HCL 200MG/2ML INJ IM PRN (12:43)
--- NOTE | 2017-12-26 12:52 | PN ---
BHS Progress Note (SOAP) Subjective: Anxious, Vomiting, Poor Appetite, Stomach Cramping. Objective: PATIENT A & O X 3, OBSERVED AMBULATING ON UNIT. NO ACUTE DISTRESS. 12/26/17 12:48 Vital Signs Temperature 97.5 F L 12/26/17 09:16 Pulse Rate 61 12/26/17 09:16 Respiratory Rate 18 12/26/17 09:16 Blood Pressure 143/93 12/26/17 09:16 O2 Sat by Pulse Oximetry (%) Laboratory Tests 12/23/17 12/23/17 12/23/17 07:40 07:40 07:40 WBC 9.9 RBC 4.33 Hgb 11.3 L Hct 34.9 L D MCV 80.6 MCH 26.1 MCHC 32.4 RDW 17.3 H Plt Count 354 MPV 7.9 Sodium 144 Potassium 4.0 Chloride 110 H Carbon Dioxide 27 Anion Gap 7 L BUN 14 Creatinine 1.2 Creat Clearance w eGFR > 60 Random Glucose 94 Calcium 8.8 Total Bilirubin 0.2 AST 9 L ALT 18 Alkaline Phosphatase 54 Total Protein 6.4 Albumin 3.4 Urine Color Urine Appearance Urine pH Ur Specific [place] Urine Protein Urine Glucose (UA) Urine Ketones Urine Blood Urine Nitrite Urine Bilirubin Urine Urobilinogen Ur Leukocyte Esterase RPR Titer Nonreactive 12/23/17 22:23 WBC RBC Hgb Hct MCV MCH MCHC RDW Plt Count MPV Sodium Potassium Chloride Carbon Dioxide Anion Gap BUN Creatinine Creat Clearance w eGFR Random Glucose Calcium Total Bilirubin AST ALT Alkaline Phosphatase Total Protein Albumin Urine Color Yellow Urine Appearance Clear Urine pH 5.0 Ur Specific [place] 1.021 Urine Protein Negative Urine Glucose (UA) Negative Urine Ketones Negative Urine Blood Negative Urine Nitrite Negative Urine Bilirubin Negative Urine Urobilinogen Negative Ur Leukocyte Esterase Negative RPR Titer LABS NOTED. Assessment: 12/26/17 12:49 WITHDRAWAL SYMPTOMS. Plan: CONTINUE DETOX. SINCE PATIENT VOMITED WITHIN A FEW MINUTES AFTER TAKING AM MEDICATION ( INCLUDING DETOX METHADONE), TIGAN IM ORDERED WITH REPLACEMENT DOSE OF METHADONE 10 MG PO TO BE RE-ADMINISTERED APPROX. 45 MINUTES AFTER ADMINISTRATION OF IM TIGAN. WILL EVALUATE AFTERNOON BP READING BEFORE DETERMINING WHETHER OR NOT TO RE-ADMINISTER PO AMLODIPINE.
[2017-12-26] MEDS ORDERED: METHADONE HCL 10 MG TABLET (FOR DETOX USE ONLY) PO ONE ×2 (13:30)
[2017-12-26] MEDS: ACETAMINOPHEN 325 MG TABLET (FP) PO PRN ×2 (18:06→22:19)
[2017-12-26] MEDS: DOCUSATE SODIUM 100 MG CAPSULE (FP) PO SCH (22:18)
[2017-12-26] MEDS: THIAMINE HCL 100 MG TABLET (FP) PO SCH (22:18)
[2017-12-26] MEDS: MELATONIN 5 MG TABLETS PO PRN (22:19)
[2017-12-26] MEDS: MAG HYDROX/AL HYDROX/SIMETH 30 ML UNIT-DOSE CUP PO PRN (22:20)
[2017-12-27] MEDS ORDERED: METHADONE HCL 5 MG TABLET (FOR DETOX USE ONLY) PO SCH (06:00)
[2017-12-27 06:14] VITALS: BP 137/88; PULSE 67; TEMP 97.1
--- NOTE | 2017-12-27 14:50 | PN ---
BHS Progress Note (SOAP) Subjective: Patient denies current Detox symptoms. Objective: PATIENT A & O X 3, OBSERVED AMBULATING ON UNIT. NO ACUTE DISTRESS. 12/27/17 14:49 Vital Signs Temperature 97.1 F L 12/27/17 06:12 Pulse Rate 67 12/27/17 06:12 Respiratory Rate 18 12/27/17 06:12 Blood Pressure 137/88 12/27/17 06:12 O2 Sat by Pulse Oximetry (%) Laboratory Tests 12/23/17 12/23/17 12/23/17 07:40 07:40 07:40 WBC 9.9 RBC 4.33 Hgb 11.3 L Hct 34.9 L D MCV 80.6 MCH 26.1 MCHC 32.4 RDW 17.3 H Plt Count 354 MPV 7.9 Sodium 144 Potassium 4.0 Chloride 110 H Carbon Dioxide 27 Anion Gap 7 L BUN 14 Creatinine 1.2 Creat Clearance w eGFR > 60 Random Glucose 94 Calcium 8.8 Total Bilirubin 0.2 AST 9 L ALT 18 Alkaline Phosphatase 54 Total Protein 6.4 Albumin 3.4 Urine Color Urine Appearance Urine pH Ur Specific [place] Urine Protein Urine Glucose (UA) Urine Ketones Urine Blood Urine Nitrite Urine Bilirubin Urine Urobilinogen Ur Leukocyte Esterase RPR Titer Nonreactive 12/23/17 22:23 WBC RBC Hgb Hct MCV MCH MCHC RDW Plt Count MPV Sodium Potassium Chloride Carbon Dioxide Anion Gap BUN Creatinine Creat Clearance w eGFR Random Glucose Calcium Total Bilirubin AST ALT Alkaline Phosphatase Total Protein Albumin Urine Color Yellow Urine Appearance Clear Urine pH 5.0 Ur Specific [place] 1.021 Urine Protein Negative Urine Glucose (UA) Negative Urine Ketones Negative Urine Blood Negative Urine Nitrite Negative Urine Bilirubin Negative Urine Urobilinogen Negative Ur Leukocyte Esterase Negative RPR Titer LABS NOTED. Assessment: 12/27/17 14:50 COMPLETION OF DETOX REGIMEN. Plan: PATIENT SCHEDULED FOR DISCHARGE FROM DETOX UNIT TODAY.
--- NOTE | 2017-12-27 15:46 | DS ---
[facility] Detox Discharge Summary Admission Date: 12/22/17 Discharge Date: 12/27/17 - History Present History: Alcohol Dependence, Cocaine Dependence, Opioid Dependence, Sedative Dependence Additional Comments: PATIENT GOING TO [facility] ([place] FOR AFTERCARE. PATIENT ADVISED TO FOLLOW-UP WITH LABEL DRI[facility] DR. GAMEZ AFTER DISCHARGE FROM DETOX UNIT FOR GENERAL MEDICAL ASSESSMENT AND FOR HISTORY OF GASTRIC DISORDER. PATIENT WAS DISCHARGED FROM DETOX UNIT IN STABLE MEDICAL CONDITION. Pertinent Past History: History of Depression, History of Anemia, HTN, Gastric Disorder, Anxiety, History of Positive PPD (Treated), History of Rheumatoid Arthritis, Insomnia. - Physical Exam Results Vital Signs: Vital Signs Temperature 97.1 F L 12/27/17 06:12 Pulse Rate 67 12/27/17 06:12 Respiratory Rate 18 12/27/17 06:12 Blood Pressure 137/88 12/27/17 06:12 O2 Sat by Pulse Oximetry (%) Pertinent Admission Physical Exam Findings: WITHDRAWAL SYMPTOMS. Laboratory Tests 12/23/17 12/23/17 12/23/17 07:40 07:40 07:40 WBC 9.9 RBC 4.33 Hgb 11.3 L Hct 34.9 L D MCV 80.6 MCH 26.1 MCHC 32.4 RDW 17.3 H Plt Count 354 MPV 7.9 Sodium 144 Potassium 4.0 Chloride 110 H Carbon Dioxide 27 Anion Gap 7 L BUN 14 Creatinine 1.2 Creat Clearance w eGFR > 60 Random Glucose 94 Calcium 8.8 Total Bilirubin 0.2 AST 9 L ALT 18 Alkaline Phosphatase 54 Total Protein 6.4 Albumin 3.4 Urine Color Urine Appearance Urine pH Ur Specific [place] Urine Protein Urine Glucose (UA) Urine Ketones Urine Blood Urine Nitrite Urine Bilirubin Urine Urobilinogen Ur Leukocyte Esterase RPR Titer Nonreactive 12/23/17 22:23 WBC RBC Hgb Hct MCV MCH MCHC RDW Plt Count MPV Sodium Potassium Chloride Carbon Dioxide Anion Gap BUN Creatinine Creat Clearance w eGFR Random Glucose Calcium Total Bilirubin AST ALT Alkaline Phosphatase Total Protein Albumin Urine Color Yellow Urine Appearance Clear Urine pH 5.0 Ur Specific [place] 1.021 Urine Protein Negative Urine Glucose (UA) Negative Urine Ketones Negative Urine Blood Negative Urine Nitrite Negative Urine Bilirubin Negative Urine Urobilinogen Negative Ur Leukocyte Esterase Negative RPR Titer LABS NOTED. - Treatment Hospital Course: Detox Protocol Followed, Detoxed Safely, Responded well, Discharged Condition Good Patient has Accepted a Rehab Referral to: PATIENT GOING TO [facility] ([place] - Medication Discharge Medications: Ambulatory Orders Amlodipine Besylate [Norvasc -] 10 mg PO DAILY #30 tablet 12/27/17 Docusate Sodium 100 mg PO HS #30 capsule 12/27/17 Ferrous Sulfate [Iron] 325 mg PO DAILY #30 tablet 12/27/17 Pantoprazole Sodium [Protonix -] 40 mg PO DAILY #30 tablet.ec 12/27/17 - Diagnosis (1) Alcohol dependence with uncomplicated withdrawal Status: Acute (2) Cocaine dependence with withdrawal Status: Acute (3) Nicotine dependence Status: Chronic Qualifiers: Nicotine product type: cigarettes Substance use status: in withdrawal Qualified Code(s): F17.213 - Nicotine dependence, cigarettes, with withdrawal (4) Opioid dependence with withdrawal Status: Chronic (5) Hypertension Status: Chronic Qualifiers: Hypertension type: essential hypertension Qualified Code(s): I10 - Essential (primary) hypertension (6) Positive PPD, treated Status: Chronic (7) Uncomplicated sedative, hypnotic or anxiolytic withdrawal Status: Chronic (8) Anxiety Status: Chronic (9) Insomnia Status: Acute Qualifiers: Insomnia type: unspecified Qualified Code(s): G47.00 - Insomnia, unspecified (10) Substance induced mood disorder Status: Acute (11) MDD (major depressive disorder) Status: Chronic Qualifiers: Major depression recurrence: unspecified whether recurrent Active/ Remission status: remission status unspecified Qualified Code(s): F32.9 - Major depressive disorder, single episode, unspecified - AMA Did Patient Leave Against Medical Advice: No
== END 2017-12-27 08:52 | disposition home or self-care (01) | DRG 773 ==
LOC: YASAS 19:42 → Y3N 21:15
PROVIDERS: ADMIT Surgery; ATTEND Surgery
PROC: HZ2ZZZZ Detoxification Services for Substance Abuse Treatment (ICD-10-PCS; principal; 2017-12-22)
DX: F11.23 Opioid dependence with withdrawal (principal); F10.230 Alcohol dependence with withdrawal, uncomplicated; F13.230 Sedative, hypnotic or anxiolytic dependence with withdrawal, uncomplicated; F14.20 Cocaine dependence, uncomplicated; F17.213 Nicotine dependence, cigarettes, with withdrawal; I10 Essential (primary) hypertension; R76.11 Nonspecific reaction to tuberculin skin test without active tuberculosis; G47.00 Insomnia, unspecified; D64.9 Anemia, unspecified; M06.9 Rheumatoid arthritis, unspecified; Z91.5 Personal history of self-harm; Z59.0 Homelessness
CPT/HCPCS: 36415; 71046-TC-FY; 80053; 81003; 85027; 86593; 93005; 93010